=== PATIENT | male | born 1985 | race Caucasian/White ===

== ENCOUNTER 2021-01-27 15:44 | Inpatient (IN) | payer BC ==
[2021-01-27] MEDS ORDERED: Sodium Chloride 0.9% 10 ML Syringe FLUSH PRN ×2 (16:06→19:50)
[2021-01-27] MEDS ORDERED: Sodium Chloride 0.9% 2.5 ML Syringe FLUSH PRN ×2 (16:06→19:50)
[2021-01-27] MEDS ORDERED: Sodium Chloride 0.9% 1,000 ML IV ONE (16:06)
[2021-01-27] MEDS ORDERED: Piperacillin/Tazobactam 3.375 GM in Sodium Chloride 0.9% 50 ML IV ONE (16:13)
--- NOTE | 2021-01-27 16:15 | EDM.PDOC ---
ED HPI GENERAL MEDICAL PROBLEM - General Chief Complaint: Flank Pain Stated Complaint: PAIN RT SIDE BACK INTO FRONT Time Seen by Provider: 01/27/21 15:52 Source of Information: Reports: Patient History Limitations: Reports: No Limitations - History of Present Illness INITIAL COMMENTS - FREE TEXT/NARRATIVE: 35-year-old male past medical history depression presents for fever. Patient states that he has had flulike symptoms for around the past 6 days. Initially with a nonproductive cough, sore throat, congestion. Over the last 2 to 3 days he has noted abdominal pain worse on the right side and radiating to the right middle back. No associated dysuria, hematuria. No associated nausea or vomiting. His fevers are waxing and waning and has been taking a lot of Tylenol. He has been trying to stay hydrated. Right flank Pain Score (Numeric/FACES): 8 - Related Data Allergies Allergy/AdvReac Type Severity Reaction Status Date / Time No Known Allergies Allergy Verified 01/27/21 15:54 Home Meds: Home Meds lamoTRIgine [Lamictal] 100 mg PO DAILY 04/02/18 [History] Past Medical History - Past Health History Medical/Surgical History: Denies Medical/Surgical History HEENT History: Reports: None Cardiovascular History: Reports: None Respiratory History: Reports: None Gastrointestinal History: Reports: Other (See Below) Other Gastrointestinal History: occasional heartburn Genitourinary History: Reports: None Musculoskeletal History: Reports: None Neurological History: Reports: None Psychiatric History: Reports: Anxiety, Bipolar Endocrine/Metabolic History: Reports: None Hematologic History: Reports: None Immunologic History: Reports: None Oncologic (Cancer) History: Reports: None Dermatologic History: Reports: None - Infectious Disease History Infectious Disease History: Reports: Chicken Pox - Past Surgical History Head Surgeries/Procedures: Reports: None HEENT Surgical History: Reports: None Cardiovascular Surgical History: Reports: None Respiratory Surgical History: Reports: None GI Surgical History: Reports: None Male Surgical History: Reports: None Endocrine Surgical History: Reports: None Neurological Surgical History: Reports: None Musculoskeletal Surgical History: Reports: None Oncologic Surgical History: Reports: None Dermatological Surgical History: Reports: None Social & Family History - Family History Family Medical History: No Pertinent Family History - Tobacco Use Tobacco Use Status *Q: Former Tobacco User Used Tobacco, but Quit: Yes Month/Year Tobacco Last Used: 8 days - Caffeine Use Caffeine Use: Reports: None - Recreational Drug Use Recreational Drug Use: Yes Recreational Drug Type: Reports: Marijuana/Hashish ED ROS GENERAL - Review of Systems Review Of Systems: Comprehensive ROS is negative, except as noted in HPI. ED EXAM, GENERAL - Physical Exam Exam: See Below Exam Limited By: No Limitations General Appearance: Alert, WD/WN, No Apparent Distress Throat/Mouth: Normal Voice, No Airway Compromise Head: Atraumatic, Normocephalic Neck: Normal Inspection, Supple, Non-Tender Respiratory/Chest: No Respiratory Distress, Lungs Clear, Normal Breath Sounds, No Accessory Muscle Use Cardiovascular: Normal Peripheral Pulses, Tachycardia GI/Abdominal: Soft, Other (subjective TTP diffuse worse in right sided abdomen, no guarding or rebound, negative McBurneys and [place]phe[place] point) Back Exam: Normal Inspection Extremities: Normal Inspection, Normal Range of Motion, No Pedal Edema Neurological: Alert, Oriented, Normal Cognition Psychiatric: Normal Affect, Normal Mood Skin Exam: Warm, Dry, Intact, Normal Color #1 Interpretation EKG Date: 01/27/21 Time: 16:16 Rhythm: NSR Rate (Beats/Min): 118 [place]: Normal P-Wave: Present QRS: Normal ST-T: Normal QT: Normal RI/PQ Interval: 162 Comparison: NA - No Prior EKG EKG Interpretation Comments: tachycardia without ischemic changes Course - Vital Signs Last Recorded V/S: Last Vital Signs Temp 101.3 F H 01/27/21 17:53 Pulse 100 01/27/21 17:53 Resp 18 01/27/21 17:53 BP 122/74 01/27/21 17:53 Pulse Ox 95 01/27/21 17:53 - Orders/Labs/Meds Orders: Active Orders 24 hr Category Date Time Status Patient Status [ADT] Routine ADT 01/27/21 18:35 Active Cardiac Monitoring [RC] . DIRECTED Care 01/27/21 16:06 Active EKG Documentation Completion [RC] STAT Care 01/27/21 16:06 Active Pulse Oximetry [RC] ASDIRECTED Care 01/27/21 16:06 Active CORONAVIRUS COVID-19 HELENA [MOLEC] Stat Lab 01/27/21 18:36 Ordered COVID-19/FLU A+B [MOLEC] Stat Lab 01/27/21 16:09 Ordered CULTURE BLOOD [BC] Stat Lab 01/27/21 16:13 Received CULTURE BLOOD [BC] Stat Lab 01/27/21 16:45 Received PTT,PARTIAL THROMBOPLSTIN TIME [COAG] Q6H Lab 01/27/21 18:45 Ordered PTT,PARTIAL THROMBOPLSTIN TIME [COAG] Q6 Lab 01/28/21 00:45 Ordered PTT,PARTIAL THROMBOPLSTIN TIME [COAG] Q6 Lab 01/28/21 06:45 Ordered PTT,PARTIAL THROMBOPLSTIN TIME [COAG] Q6 Lab 01/28/21 12:45 Ordered PTT,PARTIAL THROMBOPLSTIN TIME [COAG] Q6 Lab 01/28/21 18:45 Ordered PTT,PARTIAL THROMBOPLSTIN TIME [COAG] Q6 Lab 01/29/21 00:45 Ordered PTT,PARTIAL THROMBOPLSTIN TIME [COAG] Q6 Lab 01/29/21 06:45 Ordered PTT,PARTIAL THROMBOPLSTIN TIME [COAG] Stat Lab 01/27/21 18:36 Ordered Azithromycin [Zithromax] 500 mg Med 01/27/21 18:51 Ordered Sodium Chloride 0.9% [Normal Saline (AdvBag)] 250 ml IV ONETIME Heparin Sodium/0.45% NaCl [Heparin 25,000 Units in 1/2 Med 01/27/21 18:45 Active NS 500 ML] 500 ml IV TITRATE Ketorolac [Toradol] Med 01/27/21 18:52 Stat 15 mg IVPUSH STAT STA Sodium Chloride 0.9% [Saline Flush] Med 01/27/21 16:06 Active 10 ml FLUSH ASDIRECTED PRN Sodium Chloride 0.9% [Saline Flush] Med 01/27/21 16:06 Active 2.5 ml FLUSH ASDIRECTED PRN Blood Culture x2 Reflex Set [OM.PC] Stat Oth 01/27/21 16:08 Ordered Saline Lock Insert [OM.PC] Stat Oth 01/27/21 16:06 Ordered Medication Orders Heparin Sodium/Sodium Chloride (Heparin 25,000 Units In 1/2 Ns 500 Ml) 500 mls @ 26.127 mls/hr IV TITRATE BETSY; Protocol Azithromycin 500 mg/ Sodium (Chloride) 250 mls @ 250 mls/hr IV ONETIME STA Stop: 01/27/21 19:50 Sodium Chloride (Sodium Chloride 0.9% 10 Ml Syringe) 10 ml FLUSH ASDIRECTED PRN PRN Reason: Keep Vein Open Last Admin: 01/27/21 16:44 Dose: 10 ml Documented by: [id number] Sodium Chloride (Sodium Chloride 0.9% 2.5 Ml Syringe) 2.5 ml FLUSH ASDIRECTED PRN PRN Reason: Keep Vein Open Last Admin: 01/27/21 16:44 Dose: 2.5 ml Documented by: [id number] Labs: Laboratory Tests 01/27/21 01/27/21 01/27/21 Range/Units 16:45 16:45 16:45 WBC 14.75 H (4.0-11.0) K/uL RBC 4.41 L (4.50-5.90) M/uL Hgb 12.8 L (13.0-17.0) g/dL Hct 38.0 (38.0-50.0) % MCV 86.2 (80.0-98.0) fL MCH 29.0 (27.0-32.0) pg MCHC 33.7 (31.0-37.0) g/dL RDW Std Deviation 43.3 (28.0-62.0) fl RDW Coeff of Willy 14 (11.0-15.0) % Plt Count 316 (150-400) K/uL MPV 10.10 (7.40-12.00) fL Neut % (Auto) 87.2 H (48.0-80.0) % Lymph % (Auto) 6.4 L (16.0-40.0) % [place] % (Auto) 6.2 (0.0-15.0) % Eos % (Auto) 0.1 (0.0-7.0) % Baso % (Auto) 0.1 (0.0-1.5) % Neut # (Auto) 12.8 H (1.4-5.7) K/uL Lymph # (Auto) 1.0 (0.6-2.4) K/uL [place] # (Auto) 0.9 H (0.0-0.8) K/uL Eos # (Auto) 0.0 (0.0-0.7) K/uL Baso # (Auto) 0.0 (0.0-0.1) K/uL Nucleated RBC % 0.0 /100WBC Nucleated RBCs # 0 K/uL INR APTT (18.6-31.3) SEC Sodium 129 L (136-148) mmol/L Potassium 3.9 (3.5-5.1) mmol/L Chloride 94 L (98-107) mmol/L Carbon Dioxide 25.7 (21.0-32.0) mmol/L BUN 12 (7.0-18.0) mg/dL Creatinine 1.1 (0.8-1.3) mg/dL Est Cr Clr Drug Dosing 97.13 mL/min Estimated GFR (MDRD) > 60.0 ml/min Glucose 129 H (74-106) mg/dL Lactic Acid 1.6 (0.4-2.0) mmol/L Calcium 8.2 L (8.5-10.1) mg/dL Magnesium 2.2 (1.8-2.4) mg/dL Total Bilirubin 0.9 (0.2-1.0) mg/dL AST 139 H (15-37) IU/L ALT 215 H (14-63) IU/L Alkaline Phosphatase 293 H (46-116) U/L Troponin I < 0.050 (0.000-0.056) ng/mL C-Reactive Protein 15.90 H (0.00-0.90) mg/dL Total Protein 7.2 (6.4-8.2) g/dL Albumin 2.5 L (3.4-5.0) g/dL Globulin 4.7 H (2.6-4.0) g/dL Albumin/Globulin Ratio 0.5 L (0.9-1.6) Lipase 167 (73-393) U/L Urine Color Urine Appearance Urine pH (5.0-8.0) Ur Specific [place] (1.001-1.035) Urine Protein (NEGATIVE) mg/dL Urine Glucose (UA) (NEGATIVE) mg/dL Urine Ketones (NEGATIVE) mg/dL Urine Occult Blood (NEGATIVE) Urine Nitrite (NEGATIVE) Urine Bilirubin (NEGATIVE) Urine Urobilinogen (<2.0) EU/dL Ur Leukocyte Esterase (NEGATIVE) Urine RBC (0-2/HPF) Urine WBC (0-5/HPF) Ur Epithelial Cells (NONE-FEW) Amorphous Sediment (NEGATIVE) Urine Bacteria (NEGATIVE) Urine Mucus (NONE-MOD) 01/27/21 01/27/21 Range/Units 16:45 17:26 WBC (4.0-11.0) K/uL RBC (4.50-5.90) M/uL Hgb (13.0-17.0) g/dL Hct (38.0-50.0) % MCV (80.0-98.0) fL MCH (27.0-32.0) pg MCHC (31.0-37.0) g/dL RDW Std Deviation (28.0-62.0) fl RDW Coeff of Willy (11.0-15.0) % Plt Count (150-400) K/uL MPV (7.40-12.00) fL Neut % (Auto) (48.0-80.0) % Lymph % (Auto) (16.0-40.0) % [place] % (Auto) (0.0-15.0) % Eos % (Auto) (0.0-7.0) % Baso % (Auto) (0.0-1.5) % Neut # (Auto) (1.4-5.7) K/uL Lymph # (Auto) (0.6-2.4) K/uL [place] # (Auto) (0.0-0.8) K/uL Eos # (Auto) (0.0-0.7) K/uL Baso # (Auto) (0.0-0.1) K/uL Nucleated RBC % /100WBC Nucleated RBCs # K/uL INR 1.09 APTT 27.3 (18.6-31.3) SEC Sodium (136-148) mmol/L Potassium (3.5-5.1) mmol/L Chloride (98-107) mmol/L Carbon Dioxide (21.0-32.0) mmol/L BUN (7.0-18.0) mg/dL Creatinine (0.8-1.3) mg/dL Est Cr Clr Drug Dosing mL/min Estimated GFR (MDRD) ml/min Glucose (74-106) mg/dL Lactic Acid (0.4-2.0) mmol/L Calcium (8.5-10.1) mg/dL Magnesium (1.8-2.4) mg/dL Total Bilirubin (0.2-1.0) mg/dL AST (15-37) IU/L ALT (14-63) IU/L Alkaline Phosphatase (46-116) U/L Troponin I (0.000-0.056) ng/mL C-Reactive Protein (0.00-0.90) mg/dL Total Protein (6.4-8.2) g/dL Albumin (3.4-5.0) g/dL Globulin (2.6-4.0) g/dL Albumin/Globulin Ratio (0.9-1.6) Lipase (73-393) U/L Urine Color YELLOW Urine Appearance CLEAR Urine pH 7.5 (5.0-8.0) Ur Specific [place] 1.015 (1.001-1.035) Urine Protein TRACE H (NEGATIVE) mg/dL Urine Glucose (UA) NEGATIVE (NEGATIVE) mg/dL Urine Ketones NEGATIVE (NEGATIVE) mg/dL Urine Occult Blood TRACE-INTACT H (NEGATIVE) Urine Nitrite NEGATIVE (NEGATIVE) Urine Bilirubin NEGATIVE (NEGATIVE) Urine Urobilinogen 4.0 H (<2.0) EU/dL Ur Leukocyte Esterase NEGATIVE (NEGATIVE) Urine RBC 2-3 (0-2/HPF) Urine WBC 0-1 (0-5/HPF) Ur Epithelial Cells NOT SEEN (NONE-FEW) Amorphous Sediment RARE (NEGATIVE) Urine Bacteria RARE (NEGATIVE) Urine Mucus RARE (NONE-MOD) Meds: Medications Generic Name Dose Route Start Last Admin Trade Name Freq PRN Reason Stop Dose Admin Heparin Sodium/Sodium Chloride 500 mls @ 26.127 mls/hr 01/27/21 18:45 Heparin 25,000 Units In 1/2 Ns 500 Ml IV TITRATE BETSY Protocol 18 UNITS/KG/HR Azithromycin 500 mg/ Sodium 250 mls @ 250 mls/hr 01/27/21 18:51 Chloride IV 01/27/21 19:50 ONETIME STA Sodium Chloride 10 ml 01/27/21 16:06 01/27/21 16:44 Sodium Chloride 0.9% 10 Ml Syringe FLUSH 10 ml ASDIRECTED PRN Administration Keep Vein Open Sodium Chloride 2.5 ml 01/27/21 16:06 01/27/21 16:44 Sodium Chloride 0.9% 2.5 Ml Syringe FLUSH 2.5 ml ASDIRECTED PRN Administration Keep Vein Open Discontinued Medications Generic Name Dose Route Start Last Admin Trade Name Freq PRN Reason Stop Dose Admin Acetaminophen 1,000 mg 01/27/21 16:33 01/27/21 16:42 Acetaminophen 500 Mg Tab PO 01/27/21 16:34 1,000 mg ONETIME ONE Administration Sodium Chloride 1,000 mls @ 999 mls/hr 01/27/21 16:06 01/27/21 16:43 Normal Saline IV 01/27/21 17:06 999 mls/hr .Bolus ONE Administration Piperacillin Sod/Tazobactam 50 mls @ 100 mls/hr 01/27/21 16:13 01/27/21 17:34 Sod 3.375 gm/ Sodium Chloride IV 01/27/21 16:42 Infused ONETIME ONE Infusion Vancomycin HCl 1,500 mg/ 100 mls @ 100 mls/hr 01/27/21 16:13 01/27/21 17:33 Sodium Chloride IV 01/27/21 17:12 Not Given ONETIME ONE Vancomycin HCl 1.5 gm/ Premix 300 mls @ 300 mls/hr 01/27/21 17:13 01/27/21 17:33 IV 01/27/21 18:12 300 mls/hr ONETIME ONE Administration Azithromycin 500 mg/ Sodium 250 mls @ 250 mls/hr 01/27/21 18:45 Chloride IV ONETIME BETSY Iopamidol 100 ml 01/27/21 17:49 01/27/21 17:50 Iopamidol 755 Mg/Ml 500 Ml Multipack Bottle IVPUSH 01/27/21 17:50 100 ml ONETIME STA Administration - Re-Assessments/Exams Free Text/Narrative Re-Assessment/Exam: 01/27/21 16:13 Patient's presents with SIRS positive criteria. Will work-up for sepsis. Symptoms are somewhat nonspecific and do not single out any [address] abdomen pelvis. 01/27/21 18:53 CT abdomen pelvis shows the lower part of the right lung has a possible pulmonar y infarct. Will start heparin now. Spoke with Dr. Chaparro who recommends admitting patient to the hospital and they will get a CTA in the morning. We also did a Covid screening before patient is admitted. Departure - Departure Time of Disposition: 18:53 Disposition: Admitted As Inpatient 67 Condition: Fair Clinical Impression: Pulmonary infarct, Pulmonary infection - Discharge Information Referrals: Amando Maldonado MD [Primary Care Provider] - Forms: ED Department Discharge Critical Care Note - Critical Care Note Total Time (mins): 35 Sepsis Event Note (ED) - Evaluation Sepsis Screening Result: Possible Sepsis Risk - Focused Exam Vital Signs: Vital Signs Temp Temp Temp Pulse Resp BP Pulse Ox 01/27/21 17:53 101.3 F H 100 18 122/74 95 01/27/21 16:46 126 H 18 141/68 H 96 01/27/21 16:42 101 F H 01/27/21 15:55 100.7 F H 125 H 20 123/79 95 - My Orders Last 24 Hours: My Active Orders 01/27/21 16:06 Cardiac Monitoring [RC] . DIRECTED EKG Documentation Completion [RC] STAT Pulse Oximetry [RC] ASDIRECTED Sodium Chloride 0.9% [Saline Flush] 10 ml FLUSH ASDIRECTED PRN Sodium Chloride 0.9% [Saline Flush] 2.5 ml FLUSH ASDIRECTED PRN Saline Lock Insert [OM.PC] Stat 01/27/21 16:08 Blood Culture x2 Reflex Set [OM.PC] Stat 01/27/21 16:09 COVID-19/FLU A+B [MOLEC] Stat 01/27/21 16:13 CULTURE BLOOD [BC] Stat 01/27/21 16:45 CULTURE BLOOD [BC] Stat 01/27/21 18:35 Patient Status [ADT] Routine 01/27/21 18:36 CORONAVIRUS COVID-19 HELENA [MOLEC] Stat PTT,PARTIAL THROMBOPLSTIN TIME [COAG] Stat 01/27/21 18:45 PTT,PARTIAL THROMBOPLSTIN TIME [COAG] Q6H Heparin Sodium/0.45% NaCl [Heparin 25,000 Units in 1/2 NS 500 ML] 500 ml IV TITRATE 01/27/21 18:51 Azithromycin [Zithromax] 500 mg Sodium Chloride 0.9% [Normal Saline (AdvBag)] 250 ml IV ONETIME 01/27/21 18:52 Ketorolac [Toradol] 15 mg IVPUSH STAT STA 01/28/21 00:45 PTT,PARTIAL THROMBOPLSTIN TIME [COAG] Q6H 01/28/21 06:45 PTT,PARTIAL THROMBOPLSTIN TIME [COAG] Q6H 01/28/21 12:45 PTT,PARTIAL THROMBOPLSTIN TIME [COAG] Q6H 01/28/21 18:45 PTT,PARTIAL THROMBOPLSTIN TIME [COAG] Q6H 01/29/21 00:45 PTT,PARTIAL THROMBOPLSTIN TIME [COAG] Q6H 01/29/21 06:45 PTT,PARTIAL THROMBOPLSTIN TIME [COAG] Q6H - Assessment/Plan Last 24 Hours: My Active Orders 01/27/21 16:06 Cardiac Monitoring [RC] . DIRECTED EKG Documentation Completion [RC] STAT Pulse Oximetry [RC] ASDIRECTED Sodium Chloride 0.9% [Saline Flush] 10 ml FLUSH ASDIRECTED PRN Sodium Chloride 0.9% [Saline Flush] 2.5 ml FLUSH ASDIRECTED PRN Saline Lock Insert [OM.PC] Stat 01/27/21 16:08 Blood Culture x2 Reflex Set [OM.PC] Stat 01/27/21 16:09 COVID-19/FLU A+B [MOLEC] Stat 01/27/21 16:13 CULTURE BLOOD [BC] Stat 01/27/21 16:45 CULTURE BLOOD [BC] Stat 01/27/21 18:35 Patient Status [ADT] Routine 01/27/21 18:36 CORONAVIRUS COVID-19 HELENA [MOLEC] Stat PTT,PARTIAL THROMBOPLSTIN TIME [COAG] Stat 01/27/21 18:45 PTT,PARTIAL THROMBOPLSTIN TIME [COAG] Q6H Heparin Sodium/0.45% NaCl [Heparin 25,000 Units in 1/2 NS 500 ML] 500 ml IV TITRATE 01/27/21 18:51 Azithromycin [Zithromax] 500 mg Sodium Chloride 0.9% [Normal Saline (AdvBag)] 250 ml IV ONETIME 01/27/21 18:52 Ketorolac [Toradol] 15 mg IVPUSH STAT STA 01/28/21 00:45 PTT,PARTIAL THROMBOPLSTIN TIME [COAG] Q6H 01/28/21 06:45 PTT,PARTIAL THROMBOPLSTIN TIME [COAG] Q6H 01/28/21 12:45 PTT,PARTIAL THROMBOPLSTIN TIME [COAG] Q6H 01/28/21 18:45 PTT,PARTIAL THROMBOPLSTIN TIME [COAG] Q6H 01/29/21 00:45 PTT,PARTIAL THROMBOPLSTIN TIME [COAG] Q6H 01/29/21 06:45 PTT,PARTIAL THROMBOPLSTIN TIME [COAG] Q6H
[2021-01-27] MEDS ORDERED: Acetaminophen 500 MG Tab PO ONE (16:33)
--- NOTE | 2021-01-27 16:54 | CR ---
INDICATION: Sepsis. TECHNIQUE: Single view AP chest. FINDINGS: Heart size is within normal limits. No focal dense infiltrate or consolidation in either lung. Chest otherwise negative without acute disease. Dictated by Ian Hackett MD @ 01/27/2021 4:52:[address] Ian Hackett @ Jan 27 2021 4:52PM
[2021-01-27] MEDS ORDERED: VANCOmycin 1.5 GM/300 ML 1.5 GM in Premix Bag 1 BAG IV ONE (17:13)
[2021-01-27 17:27] LABS: BLOOD UREA NITROGEN,BUN 12 mg/dL (7.0-18.0); CARBON DIOXIDE,CO2 25.7 mmol/L (21.0-32.0); CHLORIDE,CL 94 mmol/L (98-107); GLUCOSE RANDOM 129 mg/dL (74-106); LIPASE 167 U/L (73-393); POTASSIUM,K 3.9 mmol/L (3.5-5.1); SODIUM,NA 129 mmol/L (136-148)
[2021-01-27] MEDS ORDERED: Iopamidol 755 MG/ML 500 ML Multipack Bottle IVPUSH STA (17:49)
--- NOTE | 2021-01-27 18:24 | CT ---
INDICATION: Sepsis, abdominal pain. TECHNIQUE: CT abdomen and pelvis with intravenous contrast 100 mL of Isovue-370. Coronal and sagittal reformats. COMPARISON: None available. FINDINGS: Imaged lower chest demonstrates trace bilateral pleural fluid, right greater than left. Mild bibasilar compressive atelectasis. Lateral right lower lobe demonstrates a triangular subpleural wedge-shaped consolidative opacity with a rim of ground-glass opacification (series 201, image 3), measuring up to 2.4 cm in total. - Normal liver contour. No suspicious hepatic lesion. Portal and hepatic veins patent. No biliary dilatation. Gallbladder, pancreas, and adrenals appear normal. Spleen is mildly enlarged, measuring up to 16 cm craniocaudal. - Renal cortical enhancement appears symmetric but mildly heterogeneous diffusely. No hydronephrosis bilaterally. Mild bladder wall thickening versus underdistention. Prostate unremarkable. - The bowel appears normal in caliber and enhancement diffusely. Appendix appears normal. No free air, free fluid, focal collection, or lymphadenopathy. - Normal caliber abdominal aorta. Major branch vessels patent. No aggressive osseous lesion. IMPRESSION: 1. No acute kidneys demonstrate mildly heterogeneous but symmetric cortical enhancement, possibly artifactual. Correlate for clinical evidence of urinary infection. 2. Nonspecific mild splenomegaly. 3. Trace bilateral pleural effusions with bibasilar atelectasis. 4. Right lower lobe peripheral wedge-shaped consolidative opacity with ground-glass halo is indeterminate and possibly infectious, but raising the possibility of a pulmonary infarct. Consider further evaluation with CT pulmonary angiogram. Dictated by Gil Arredondo MD @ 01/27/2021 6:23:31 PM Please note that all CT scans at this facility use dose modulation, iterative reconstruction, and/or weight-based dosing when appropriate to reduce radiation dose to as low as reasonably achievable. Dictated by: Gil Arredondo MD @ 01/27/2021 18:23:34 (Electronically Signed)
[2021-01-27] MEDS ORDERED: Azithromycin 500 MG in Sodium Chloride 0.9% 250 ML IV SCH (18:45)
[2021-01-27] MEDS ORDERED: Azithromycin 500 MG in Sodium Chloride 0.9% 250 ML IV STA (18:51)
[2021-01-27] MEDS ORDERED: Ketorolac 15 MG/ML SDV IVPUSH STA (18:52)
[2021-01-27] MEDS ORDERED: Heparin Sodium/0.45% NaCl 500 ML ONE (19:00)
[2021-01-27] MEDS ORDERED: Sodium Chloride 0.9% 1,000 ML IV SCH ×2 (19:45→20:00)
[2021-01-27] MEDS ORDERED: Ondansetron 4 MG Tab.DIS PO PRN (19:50)
[2021-01-27] MEDS ORDERED: Sodium Chloride 0.9% 10 ML SDV IV PRN (19:50)
[2021-01-27] MEDS ORDERED: Morphine 10 MG/ML Syringe IVPUSH PRN (19:50)
--- NOTE | 2021-01-27 20:14 | PCM.PN ---
- General Info Date of Service: 01/27/21 Admission Dx/Problem (Free Text): Flank pain/chest pain Functional Status: Reports: Pain Controlled, Tolerating Diet - Review of Systems General: Reports: Fever, Fatigue, Appetite (Decreased) HEENT: Reports: No Symptoms Pulmonary: Reports: Pleuritic Chest Pain Cardiovascular: Reports: Chest Pain, Palpitations Gastrointestinal: Reports: Abdominal Pain Genitourinary: Reports: No Symptoms Musculoskeletal: Reports: No Symptoms Skin: Reports: No Symptoms Neurological: Reports: No Symptoms Psychiatric: Reports: No Symptoms - Patient Data Vitals - Most Recent: Last Vital Signs Temp 100.6 F 01/27/21 18:58 Pulse 96 01/27/21 18:53 Resp 18 01/27/21 18:53 BP 108/56 L 01/27/21 18:53 Pulse Ox 96 01/27/21 18:53 Weight - Most Recent: 160 lb Lab Results Last 24 Hours: Laboratory Results - last 24 hr 01/27/21 01/27/21 01/27/21 Range/Units 16:45 16:45 16:45 WBC 14.75 H (4.0-11.0) K/uL RBC 4.41 L (4.50-5.90) M/uL Hgb 12.8 L (13.0-17.0) g/dL Hct 38.0 (38.0-50.0) % MCV 86.2 (80.0-98.0) fL MCH 29.0 (27.0-32.0) pg MCHC 33.7 (31.0-37.0) g/dL RDW Std Deviation 43.3 (28.0-62.0) fl RDW Coeff of Willy 14 (11.0-15.0) % Plt Count 316 (150-400) K/uL MPV 10.10 (7.40-12.00) fL Neut % (Auto) 87.2 H (48.0-80.0) % Lymph % (Auto) 6.4 L (16.0-40.0) % Stearns % (Auto) 6.2 (0.0-15.0) % Eos % (Auto) 0.1 (0.0-7.0) % Baso % (Auto) 0.1 (0.0-1.5) % Neut # (Auto) 12.8 H (1.4-5.7) K/uL Lymph # (Auto) 1.0 (0.6-2.4) K/uL Stearns # (Auto) 0.9 H (0.0-0.8) K/uL Eos # (Auto) 0.0 (0.0-0.7) K/uL Baso # (Auto) 0.0 (0.0-0.1) K/uL Nucleated RBC % 0.0 /100WBC Nucleated RBCs # 0 K/uL INR APTT (18.6-31.3) SEC Sodium 129 L (136-148) mmol/L Potassium 3.9 (3.5-5.1) mmol/L Chloride 94 L (98-107) mmol/L Carbon Dioxide 25.7 (21.0-32.0) mmol/L BUN 12 (7.0-18.0) mg/dL Creatinine 1.1 (0.8-1.3) mg/dL Est Cr Clr Drug Dosing 97.13 mL/min Estimated GFR (MDRD) > 60.0 ml/min Glucose 129 H (74-106) mg/dL Lactic Acid 1.6 (0.4-2.0) mmol/L Calcium 8.2 L (8.5-10.1) mg/dL Magnesium 2.2 (1.8-2.4) mg/dL Total Bilirubin 0.9 (0.2-1.0) mg/dL AST 139 H (15-37) IU/L ALT 215 H (14-63) IU/L Alkaline Phosphatase 293 H (46-116) U/L Troponin I < 0.050 (0.000-0.056) ng/mL C-Reactive Protein 15.90 H (0.00-0.90) mg/dL Total Protein 7.2 (6.4-8.2) g/dL Albumin 2.5 L (3.4-5.0) g/dL Globulin 4.7 H (2.6-4.0) g/dL Albumin/Globulin Ratio 0.5 L (0.9-1.6) Lipase 167 (73-393) U/L Urine Color Urine Appearance Urine pH (5.0-8.0) Ur Specific [place] (1.001-1.035) Urine Protein (NEGATIVE) mg/dL Urine Glucose (UA) (NEGATIVE) mg/dL Urine Ketones (NEGATIVE) mg/dL Urine Occult Blood (NEGATIVE) Urine Nitrite (NEGATIVE) Urine Bilirubin (NEGATIVE) Urine Urobilinogen (<2.0) EU/dL Ur Leukocyte Esterase (NEGATIVE) Urine RBC (0-2/HPF) Urine WBC (0-5/HPF) Ur Epithelial Cells (NONE-FEW) Amorphous Sediment (NEGATIVE) Urine Bacteria (NEGATIVE) Urine Mucus (NONE-MOD) 01/27/21 01/27/21 Range/Units 16:45 17:26 WBC (4.0-11.0) K/uL RBC (4.50-5.90) M/uL Hgb (13.0-17.0) g/dL Hct (38.0-50.0) % MCV (80.0-98.0) fL MCH (27.0-32.0) pg MCHC (31.0-37.0) g/dL RDW Std Deviation (28.0-62.0) fl RDW Coeff of Willy (11.0-15.0) % Plt Count (150-400) K/uL MPV (7.40-12.00) fL Neut % (Auto) (48.0-80.0) % Lymph % (Auto) (16.0-40.0) % Stearns % (Auto) (0.0-15.0) % Eos % (Auto) (0.0-7.0) % Baso % (Auto) (0.0-1.5) % Neut # (Auto) (1.4-5.7) K/uL Lymph # (Auto) (0.6-2.4) K/uL Stearns # (Auto) (0.0-0.8) K/uL Eos # (Auto) (0.0-0.7) K/uL Baso # (Auto) (0.0-0.1) K/uL Nucleated RBC % /100WBC Nucleated RBCs # K/uL INR 1.09 APTT 27.3 (18.6-31.3) SEC Sodium (136-148) mmol/L Potassium (3.5-5.1) mmol/L Chloride (98-107) mmol/L Carbon Dioxide (21.0-32.0) mmol/L BUN (7.0-18.0) mg/dL Creatinine (0.8-1.3) mg/dL Est Cr Clr Drug Dosing mL/min Estimated GFR (MDRD) ml/min Glucose (74-106) mg/dL Lactic Acid (0.4-2.0) mmol/L Calcium (8.5-10.1) mg/dL Magnesium (1.8-2.4) mg/dL Total Bilirubin (0.2-1.0) mg/dL AST (15-37) IU/L ALT (14-63) IU/L Alkaline Phosphatase (46-116) U/L Troponin I (0.000-0.056) ng/mL C-Reactive Protein (0.00-0.90) mg/dL Total Protein (6.4-8.2) g/dL Albumin (3.4-5.0) g/dL Globulin (2.6-4.0) g/dL Albumin/Globulin Ratio (0.9-1.6) Lipase (73-393) U/L Urine Color YELLOW Urine Appearance CLEAR Urine pH 7.5 (5.0-8.0) Ur Specific [place] 1.015 (1.001-1.035) Urine Protein TRACE H (NEGATIVE) mg/dL Urine Glucose (UA) NEGATIVE (NEGATIVE) mg/dL Urine Ketones NEGATIVE (NEGATIVE) mg/dL Urine Occult Blood TRACE-INTACT H (NEGATIVE) Urine Nitrite NEGATIVE (NEGATIVE) Urine Bilirubin NEGATIVE (NEGATIVE) Urine Urobilinogen 4.0 H (<2.0) EU/dL Ur Leukocyte Esterase NEGATIVE (NEGATIVE) Urine RBC 2-3 (0-2/HPF) Urine WBC 0-1 (0-5/HPF) Ur Epithelial Cells NOT SEEN (NONE-FEW) Amorphous Sediment RARE (NEGATIVE) Urine Bacteria RARE (NEGATIVE) Urine Mucus RARE (NONE-MOD) Med Orders - Current: Current Medications Acetaminophen (Acetaminophen 325 Mg Tab) 650 mg PO Q4H PRN PRN Reason: Pain (Mild 1-3)/fever Heparin Sodium/Sodium Chloride (Heparin 25,000 Units In 1/2 Ns 500 Ml) 500 mls @ 26.127 mls/hr IV TITRATE BETSY; Protocol Sodium Chloride (Normal Saline) 1,000 mls @ 999 mls/hr IV ASDIRECTED BETSY Lamotrigine (Lamotrigine 100 Mg Tab) 100 mg PO DAILY BETSY Morphine Sulfate (Morphine 10 Mg/Ml Syringe) 2 mg IVPUSH Q2H PRN PRN Reason: Pain (severe 7-10) Stop: 01/28/21 19:56 Ondansetron HCl (Ondansetron 4 Mg Tab.Dis) 4 mg PO Q4H PRN PRN Reason: nausea, able to take PO Sodium Chloride (Sodium Chloride 0.9% 10 Ml Syringe) 10 ml FLUSH ASDIRECTED PRN PRN Reason: Keep Vein Open Last Admin: 01/27/21 16:44 Dose: 10 ml Documented by: Sodium Chloride (Sodium Chloride 0.9% 2.5 Ml Syringe) 2.5 ml FLUSH ASDIRECTED PRN PRN Reason: Keep Vein Open Last Admin: 01/27/21 16:44 Dose: 2.5 ml Documented by: Sodium Chloride (Sodium Chloride 0.9% 10 Ml Syringe) 10 ml FLUSH ASDIRECTED PRN PRN Reason: Keep Vein Open Sodium Chloride (Sodium Chloride 0.9% 2.5 Ml Syringe) 2.5 ml FLUSH ASDIRECTED PRN PRN Reason: Keep Vein Open Sodium Chloride (Sodium Chloride 0.9% 10 Ml Sdv) 10 ml IV ASDIRECTED PRN PRN Reason: IV Use Discontinued Medications Acetaminophen (Acetaminophen 500 Mg Tab) 1,000 mg PO ONETIME ONE Stop: 01/27/21 16:34 Last Admin: 01/27/21 16:42 Dose: 1,000 mg Documented by: Sodium Chloride (Normal Saline) 1,000 mls @ 999 mls/hr IV .Bolus ONE Stop: 01/27/21 17:06 Last Admin: 01/27/21 16:43 Dose: 999 mls/hr Documented by: Piperacillin Sod/Tazobactam (Sod 3.375 gm/ Sodium Chloride) 50 mls @ 100 mls/hr IV ONETIME ONE Stop: 01/27/21 16:42 Last Infusion: 01/27/21 17:34 Dose: Infused Documented by: Vancomycin HCl 1,500 mg/ (Sodium Chloride) 100 mls @ 100 mls/hr IV ONETIME ONE Stop: 01/27/21 17:12 Last Admin: 01/27/21 17:33 Dose: Not Given Documented by: Vancomycin HCl 1.5 gm/ Premix 300 mls @ 300 mls/hr IV ONETIME ONE Stop: 01/27/21 18:12 Last Admin: 01/27/21 17:33 Dose: 300 mls/hr Documented by: Azithromycin 500 mg/ Sodium (Chloride) 250 mls @ 250 mls/hr IV ONETIME BETSY Azithromycin 500 mg/ Sodium (Chloride) 250 mls @ 250 mls/hr IV ONETIME STA Stop: 01/27/21 19:50 Last Admin: 01/27/21 19:36 Dose: 250 mls/hr Documented by: Heparin Sodium/Sodium Chloride (Heparin 25,000 Units In 1/2 Ns 500 Ml) Confirm Administered Dose 500 mls @ as directed .ROUTE .STK-MED ONE Stop: 01/27/21 19:01 Sodium Chloride (Normal Saline) 1,000 mls @ 125 mls/hr IV ASDIRECTED BETSY Iopamidol (Iopamidol 755 Mg/Ml 500 Ml Multipack Bottle) 100 ml IVPUSH ONETIME STA Stop: 01/27/21 17:50 Last Admin: 01/27/21 17:50 Dose: 100 ml Documented by: Ketorolac Tromethamine (Ketorolac 15 Mg/Ml Sdv) 15 mg IVPUSH STAT STA Stop: 01/27/21 18:53 Last Admin: 01/27/21 19:35 Dose: 15 mg Documented by: - Exam Quality Assessment: DVT Prophylaxis General: Alert, Oriented HEENT: Pupils Equal, Pupils Reactive, EOMI Neck: Supple, Trachea Midline Lungs: Clear to Auscultation, Normal Respiratory Effort Cardiovascular: Regular Rate, Tachycardia GI/Abdominal Exam: Normal Bowel Sounds, No Distention, Tender Back Exam: Normal Inspection. No: CVA Tenderness (L), CVA Tenderness (R) Extremities: Normal Inspection, Normal Range of Motion, Non-Tender, No Pedal Edema, Normal Capillary Refill Peripheral Pulses: 2+: Carotid (L), Carotid (R), Dorsalis Pedis (L), Dorsalis Pedis (R) Skin: Warm, Dry, Intact Neurological: No New Focal Deficit Psy/Mental Status: Alert, Normal Affect, Normal Mood - Patient Data Lab Results Last 24 hrs: Laboratory Results - last 24 hr 01/27/21 01/27/21 01/27/21 Range/Units 16:45 16:45 16:45 WBC 14.75 H (4.0-11.0) K/uL RBC 4.41 L (4.50-5.90) M/uL Hgb 12.8 L (13.0-17.0) g/dL Hct 38.0 (38.0-50.0) % MCV 86.2 (80.0-98.0) fL MCH 29.0 (27.0-32.0) pg MCHC 33.7 (31.0-37.0) g/dL RDW Std Deviation 43.3 (28.0-62.0) fl RDW Coeff of Willy 14 (11.0-15.0) % Plt Count 316 (150-400) K/uL MPV 10.10 (7.40-12.00) fL Neut % (Auto) 87.2 H (48.0-80.0) % Lymph % (Auto) 6.4 L (16.0-40.0) % Stearns % (Auto) 6.2 (0.0-15.0) % Eos % (Auto) 0.1 (0.0-7.0) % Baso % (Auto) 0.1 (0.0-1.5) % Neut # (Auto) 12.8 H (1.4-5.7) K/uL Lymph # (Auto) 1.0 (0.6-2.4) K/uL Stearns # (Auto) 0.9 H (0.0-0.8) K/uL Eos # (Auto) 0.0 (0.0-0.7) K/uL Baso # (Auto) 0.0 (0.0-0.1) K/uL Nucleated RBC % 0.0 /100WBC Nucleated RBCs # 0 K/uL INR APTT (18.6-31.3) SEC Sodium 129 L (136-148) mmol/L Potassium 3.9 (3.5-5.1) mmol/L Chloride 94 L (98-107) mmol/L Carbon Dioxide 25.7 (21.0-32.0) mmol/L BUN 12 (7.0-18.0) mg/dL Creatinine 1.1 (0.8-1.3) mg/dL Est Cr Clr Drug Dosing 97.13 mL/min Estimated GFR (MDRD) > 60.0 ml/min Glucose 129 H (74-106) mg/dL Lactic Acid 1.6 (0.4-2.0) mmol/L Calcium 8.2 L (8.5-10.1) mg/dL Magnesium 2.2 (1.8-2.4) mg/dL Total Bilirubin 0.9 (0.2-1.0) mg/dL AST 139 H (15-37) IU/L ALT 215 H (14-63) IU/L Alkaline Phosphatase 293 H (46-116) U/L Troponin I < 0.050 (0.000-0.056) ng/mL C-Reactive Protein 15.90 H (0.00-0.90) mg/dL Total Protein 7.2 (6.4-8.2) g/dL Albumin 2.5 L (3.4-5.0) g/dL Globulin 4.7 H (2.6-4.0) g/dL Albumin/Globulin Ratio 0.5 L (0.9-1.6) Lipase 167 (73-393) U/L Urine Color Urine Appearance Urine pH (5.0-8.0) Ur Specific [place] (1.001-1.035) Urine Protein (NEGATIVE) mg/dL Urine Glucose (UA) (NEGATIVE) mg/dL Urine Ketones (NEGATIVE) mg/dL Urine Occult Blood (NEGATIVE) Urine Nitrite (NEGATIVE) Urine Bilirubin (NEGATIVE) Urine Urobilinogen (<2.0) EU/dL Ur Leukocyte Esterase (NEGATIVE) Urine RBC (0-2/HPF) Urine WBC (0-5/HPF) Ur Epithelial Cells (NONE-FEW) Amorphous Sediment (NEGATIVE) Urine Bacteria (NEGATIVE) Urine Mucus (NONE-MOD) 01/27/21 01/27/21 Range/Units 16:45 17:26 WBC (4.0-11.0) K/uL RBC (4.50-5.90) M/uL Hgb (13.0-17.0) g/dL Hct (38.0-50.0) % MCV (80.0-98.0) fL MCH (27.0-32.0) pg MCHC (31.0-37.0) g/dL RDW Std Deviation (28.0-62.0) fl RDW Coeff of Willy (11.0-15.0) % Plt Count (150-400) K/uL MPV (7.40-12.00) fL Neut % (Auto) (48.0-80.0) % Lymph % (Auto) (16.0-40.0) % Stearns % (Auto) (0.0-15.0) % Eos % (Auto) (0.0-7.0) % Baso % (Auto) (0.0-1.5) % Neut # (Auto) (1.4-5.7) K/uL Lymph # (Auto) (0.6-2.4) K/uL Stearns # (Auto) (0.0-0.8) K/uL Eos # (Auto) (0.0-0.7) K/uL Baso # (Auto) (0.0-0.1) K/uL Nucleated RBC % /100WBC Nucleated RBCs # K/uL INR 1.09 APTT 27.3 (18.6-31.3) SEC Sodium (136-148) mmol/L Potassium (3.5-5.1) mmol/L Chloride (98-107) mmol/L Carbon Dioxide (21.0-32.0) mmol/L BUN (7.0-18.0) mg/dL Creatinine (0.8-1.3) mg/dL Est Cr Clr Drug Dosing mL/min Estimated GFR (MDRD) ml/min Glucose (74-106) mg/dL Lactic Acid (0.4-2.0) mmol/L Calcium (8.5-10.1) mg/dL Magnesium (1.8-2.4) mg/dL Total Bilirubin (0.2-1.0) mg/dL AST (15-37) IU/L ALT (14-63) IU/L Alkaline Phosphatase (46-116) U/L Troponin I (0.000-0.056) ng/mL C-Reactive Protein (0.00-0.90) mg/dL Total Protein (6.4-8.2) g/dL Albumin (3.4-5.0) g/dL Globulin (2.6-4.0) g/dL Albumin/Globulin Ratio (0.9-1.6) Lipase (73-393) U/L Urine Color YELLOW Urine Appearance CLEAR Urine pH 7.5 (5.0-8.0) Ur Specific [place] 1.015 (1.001-1.035) Urine Protein TRACE H (NEGATIVE) mg/dL Urine Glucose (UA) NEGATIVE (NEGATIVE) mg/dL Urine Ketones NEGATIVE (NEGATIVE) mg/dL Urine Occult Blood TRACE-INTACT H (NEGATIVE) Urine Nitrite NEGATIVE (NEGATIVE) Urine Bilirubin NEGATIVE (NEGATIVE) Urine Urobilinogen 4.0 H (<2.0) EU/dL Ur Leukocyte Esterase NEGATIVE (NEGATIVE) Urine RBC 2-3 (0-2/HPF) Urine WBC 0-1 (0-5/HPF) Ur Epithelial Cells NOT SEEN (NONE-FEW) Amorphous Sediment RARE (NEGATIVE) Urine Bacteria RARE (NEGATIVE) Urine Mucus RARE (NONE-MOD) Result Diagrams: 01/27/21 16:45 01/27/21 16:45 Sepsis Event Note - Evaluation Sepsis Screening Result: Possible Sepsis Risk - Focused Exam Vital Signs: Vital Signs Temp Temp Temp Pulse Resp BP Pulse Ox 01/27/21 18:58 100.6 F 01/27/21 18:53 96 18 108/56 L 96 01/27/21 17:53 101.3 F H 100 18 122/74 95 01/27/21 16:46 126 H 18 141/68 H 96 01/27/21 16:42 101 F H 01/27/21 15:55 100.7 F H 125 H 20 123/79 95 - Problem List & Annotations (1) Pulmonary infarct SNOMED Code(s): 09953505 Code(s): I26.99 - OTHER PULMONARY EMBOLISM WITHOUT ACUTE COR PULMONALE Status: Acute Current Visit: Yes (2) Pulmonary infection SNOMED Code(s): 361053292 Code(s): J18.9 - PNEUMONIA, UNSPECIFIED ORGANISM Status: Acute Current Visit: Yes - Problem List Review Problem List Initiated/Reviewed/Updated: Yes - My Orders Last 24 Hours: My Active Orders 01/27/21 Dinner Regular Diet [DIET] 01/27/21 19:50 Communication Order [RC] PRN Oxygen Therapy [RC] PRN Up ad Yvonne [RC] ASDIRECTED VTE/DVT Education [RC] PER UNIT ROUTINE Vital Signs [RC] Q4H Acetaminophen [TylenoL] 650 mg PO Q4H PRN Morphine 2 mg IVPUSH Q2H PRN Ondansetron [Zofran ODT] 4 mg PO Q4H PRN Sodium Chloride 0.9% [Normal Saline] 10 ml IV ASDIRECTED PRN Sodium Chloride 0.9% [Saline Flush] 10 ml FLUSH ASDIRECTED PRN Sodium Chloride 0.9% [Saline Flush] 2.5 ml FLUSH ASDIRECTED PRN Peripheral IV Insertion Adult [OM.PC] Routine Resuscitation Status Routine 01/27/21 19:51 Cardiac Monitoring [RC] CONTINUOUS Pulse Oximetry [RC] CONTINUOUS 01/27/21 19:54 Sequential Compression Device [OM.PC] Per Unit Routine 01/27/21 19:58 Antiembolic Devices [RC] PER UNIT ROUTINE 01/27/21 22:30 SODIUM,NA [CHEM] Timed 01/28/21 05:11 CBC W/O DIFF,HEMOGRAM [HEME] AM CBC WITH AUTO DIFF [HEME] AM LACTIC ACID [CHEM] AM 01/28/21 09:00 lamoTRIgine 100 mg PO DAILY - Plan Plan:: Patient is a 35-year-old gentleman with past medical history of depression a nxiety and bipolar disorder otherwise healthy. Was seen in the ED approximately 1 week prior due to flulike symptoms was found to be Covid negative. Over the weekend had intermittent fevers, decreased appetite, and has newly developed chest and flank pain. Describes pain as a sharp pain in his chest radiating to his flank 8 out of 10 on the pain scale, has tried using [id number] Tylenol/ibuprofen. Denies any significant shortness of breath, palpitations, dizziness, cough, sputum production denies any recent travel or sick contacts. Patient was found to be febrile and tachycardic upon presentation in the ED. Had a thorough work-up as he met sepsis criteria. CT Abdo pelvis found a wedge consolidation possible infection versus infarct of the right lower lobe. Immediately started on broad-spectrum antibiotics and full dose heparin.
--- NOTE | 2021-01-27 20:25 | PCM.HP.2 ---
H&P History of Present Illness - General Date of Service: 01/27/21 Admit Problem/Dx: Admission Diagnosis/Problem Admission Diagnosis/Problem Pulmonary infarction Source of Information: Patient History Limitations: Reports: No Limitations - History of Present Illness Initial Comments - Free Text/Narative: Patient is a 35-year-old gentleman with no significant past medical history except for anxiety and depression. Presented with fevers, diarrhea, flank pain since last t 3 days was thoroughly worked up in the ED for sepsis as he presented with fever and tachycardia. Patient also complained of chest and right flank pain noted to be 8 out of 10 on the pain scale, has tried using ibuprofen and Tylenol. Flulike symptoms have improved.has associated fever, chills, shortness of breath and palpitations. CT Abdo pelvis demonstrated wedgelike area in the right lower lung lobe possible infarct versus infection, suggested CT. Patient was started on full dose heparin will undergo CT angio in the morning to evaluate for PE. Quality: Reports: Sharp Severity: Moderate Improves with: Reports: Medication, Rest Worsens with: Reports: Breathing (Deep breaths), Other (Talking), Movement Context: Denies: Sick Contact Associated Symptoms: Reports: Fever/Chills, Loss of Appetite, Shortness of Breath Right flank Pain Score (Numeric/FACES): 8 - Related Data Allergies/Adverse Reactions: Allergies Allergy/AdvReac Type Severity Reaction Status Date / Time No Known Allergies Allergy Verified 01/27/21 15:54 Home Medications: Home Meds lamoTRIgine [Lamictal] 100 mg PO DAILY 04/02/18 [History] Past Medical History - Past Health History Medical/Surgical History: Denies Medical/Surgical History HEENT History: Reports: None Cardiovascular History: Reports: None Respiratory History: Reports: None Gastrointestinal History: Reports: Other (See Below) Other Gastrointestinal History: occasional heartburn Genitourinary History: Reports: None Musculoskeletal History: Reports: None Neurological History: Reports: None Psychiatric History: Reports: Anxiety, Bipolar Endocrine/Metabolic History: Reports: None Hematologic History: Reports: None Immunologic History: Reports: None Oncologic (Cancer) History: Reports: None Dermatologic History: Reports: None - Infectious Disease History Infectious Disease History: Reports: Chicken Pox - Past Surgical History Head Surgeries/Procedures: Reports: None HEENT Surgical History: Reports: None Cardiovascular Surgical History: Reports: None Respiratory Surgical History: Reports: None GI Surgical History: Reports: None Male Surgical History: Reports: None Endocrine Surgical History: Reports: None Neurological Surgical History: Reports: None Musculoskeletal Surgical History: Reports: None Oncologic Surgical History: Reports: None Dermatological Surgical History: Reports: None Social & Family History - Family History Family Medical History: No Pertinent Family History - Tobacco Use Tobacco Use Status *Q: Former Tobacco User Used Tobacco, but Quit: Yes Month/Year Tobacco Last Used: 8 days - Caffeine Use Caffeine Use: Reports: None - Recreational Drug Use Recreational Drug Use: Yes Recreational Drug Type: Reports: Marijuana/Hashish H&P Review of Systems - Review of Systems: Review Of Systems: See Below General: Reports: Fever, Chills, Weakness, Decreased Appetite HEENT: Reports: No Symptoms Pulmonary: Reports: Shortness of Breath, Pleuritic Chest Pain Cardiovascular: Reports: Chest Pain, Palpitations. Denies: Lightheadedness, Syncope Gastrointestinal: Reports: Abdominal Pain, Decreased Appetite, Nausea Genitourinary: Reports: No Symptoms Musculoskeletal: Reports: No Symptoms Skin: Reports: No Symptoms Psychiatric: Reports: No Symptoms Neurological: Reports: No Symptoms Hematologic/Lymphatic: Reports: No Symptoms Immunologic: Reports: No Symptoms Exam - Exam Exam: See Below - Vital Signs Vital Signs: Last Vital Signs Temp 100.6 F 01/27/21 18:58 Pulse 96 01/27/21 18:53 Resp 18 01/27/21 18:53 BP 108/56 L 01/27/21 18:53 Pulse Ox 96 01/27/21 18:53 Weight: 160 lb - Exam Quality Assessment: DVT Prophylaxis General: Alert, Oriented, Cooperative, Moderate Distress HEENT: Conjunctiva Clear, EACs Clear, EOMI, Mucosa Moist & [place], Nares Patent, Normal Nasal Septum, Posterior Pharynx Clear, PERRLA Neck: Supple, Trachea Midline Lungs: Clear to Auscultation, Normal Respiratory Effort Cardiovascular: Regular Rhythm, Normal S1, Normal S2, Tachycardia GI/Abdominal Exam: Normal Bowel Sounds, Soft, Non-Tender, No Organomegaly, No Distention, No Abnormal Bruit, Tender. No: Guarding, Rigid, Rebound Peripheral Pulses: 2+: Carotid (L), Carotid (R), Dorsalis Pedis (L), Dorsalis Pedis (R) Skin: Warm, Dry, Intact Neurological: Cranial Nerves Intact, Reflexes Equal Bilateral Neuro Extensive - Mental Status: Alert, Oriented x3, Normal Mood/Affect, Normal Cognition, Memory Intact Neuro Extensive - Motor, Sensory, Reflexes: CN II-XII Intact, Normal Reflexes Psychiatric: Alert, Normal Affect, Normal Mood - Patient Data Lab Results Last 24 hrs: Laboratory Results - last 24 hr 01/27/21 01/27/21 01/27/21 Range/Units 16:45 16:45 16:45 WBC 14.75 H (4.0-11.0) K/uL RBC 4.41 L (4.50-5.90) M/uL Hgb 12.8 L (13.0-17.0) g/dL Hct 38.0 (38.0-50.0) % MCV 86.2 (80.0-98.0) fL MCH 29.0 (27.0-32.0) pg MCHC 33.7 (31.0-37.0) g/dL RDW Std Deviation 43.3 (28.0-62.0) fl RDW Coeff of Willy 14 (11.0-15.0) % Plt Count 316 (150-400) K/uL MPV 10.10 (7.40-12.00) fL Neut % (Auto) 87.2 H (48.0-80.0) % Lymph % (Auto) 6.4 L (16.0-40.0) % [place] % (Auto) 6.2 (0.0-15.0) % Eos % (Auto) 0.1 (0.0-7.0) % Baso % (Auto) 0.1 (0.0-1.5) % Neut # (Auto) 12.8 H (1.4-5.7) K/uL Lymph # (Auto) 1.0 (0.6-2.4) K/uL [place] # (Auto) 0.9 H (0.0-0.8) K/uL Eos # (Auto) 0.0 (0.0-0.7) K/uL Baso # (Auto) 0.0 (0.0-0.1) K/uL Nucleated RBC % 0.0 /100WBC Nucleated RBCs # 0 K/uL INR APTT (18.6-31.3) SEC Sodium 129 L (136-148) mmol/L Potassium 3.9 (3.5-5.1) mmol/L Chloride 94 L (98-107) mmol/L Carbon Dioxide 25.7 (21.0-32.0) mmol/L BUN 12 (7.0-18.0) mg/dL Creatinine 1.1 (0.8-1.3) mg/dL Est Cr Clr Drug Dosing 97.13 mL/min Estimated GFR (MDRD) > 60.0 ml/min Glucose 129 H (74-106) mg/dL Lactic Acid 1.6 (0.4-2.0) mmol/L Calcium 8.2 L (8.5-10.1) mg/dL Magnesium 2.2 (1.8-2.4) mg/dL Total Bilirubin 0.9 (0.2-1.0) mg/dL AST 139 H (15-37) IU/L ALT 215 H (14-63) IU/L Alkaline Phosphatase 293 H (46-116) U/L Troponin I < 0.050 (0.000-0.056) ng/mL C-Reactive Protein 15.90 H (0.00-0.90) mg/dL Total Protein 7.2 (6.4-8.2) g/dL Albumin 2.5 L (3.4-5.0) g/dL Globulin 4.7 H (2.6-4.0) g/dL Albumin/Globulin Ratio 0.5 L (0.9-1.6) Lipase 167 (73-393) U/L Urine Color Urine Appearance Urine pH (5.0-8.0) Ur Specific Jones (1.001-1.035) Urine Protein (NEGATIVE) mg/dL Urine Glucose (UA) (NEGATIVE) mg/dL Urine Ketones (NEGATIVE) mg/dL Urine Occult Blood (NEGATIVE) Urine Nitrite (NEGATIVE) Urine Bilirubin (NEGATIVE) Urine Urobilinogen (<2.0) EU/dL Ur Leukocyte Esterase (NEGATIVE) Urine RBC (0-2/HPF) Urine WBC (0-5/HPF) Ur Epithelial Cells (NONE-FEW) Amorphous Sediment (NEGATIVE) Urine Bacteria (NEGATIVE) Urine Mucus (NONE-MOD) 01/27/21 01/27/21 Range/Units 16:45 17:26 WBC (4.0-11.0) K/uL RBC (4.50-5.90) M/uL Hgb (13.0-17.0) g/dL Hct (38.0-50.0) % MCV (80.0-98.0) fL MCH (27.0-32.0) pg MCHC (31.0-37.0) g/dL RDW Std Deviation (28.0-62.0) fl RDW Coeff of Willy (11.0-15.0) % Plt Count (150-400) K/uL MPV (7.40-12.00) fL Neut % (Auto) (48.0-80.0) % Lymph % (Auto) (16.0-40.0) % [place] % (Auto) (0.0-15.0) % Eos % (Auto) (0.0-7.0) % Baso % (Auto) (0.0-1.5) % Neut # (Auto) (1.4-5.7) K/uL Lymph # (Auto) (0.6-2.4) K/uL [place] # (Auto) (0.0-0.8) K/uL Eos # (Auto) (0.0-0.7) K/uL Baso # (Auto) (0.0-0.1) K/uL Nucleated RBC % /100WBC Nucleated RBCs # K/uL INR 1.09 APTT 27.3 (18.6-31.3) SEC Sodium (136-148) mmol/L Potassium (3.5-5.1) mmol/L Chloride (98-107) mmol/L Carbon Dioxide (21.0-32.0) mmol/L BUN (7.0-18.0) mg/dL Creatinine (0.8-1.3) mg/dL Est Cr Clr Drug Dosing mL/min Estimated GFR (MDRD) ml/min Glucose (74-106) mg/dL Lactic Acid (0.4-2.0) mmol/L Calcium (8.5-10.1) mg/dL Magnesium (1.8-2.4) mg/dL Total Bilirubin (0.2-1.0) mg/dL AST (15-37) IU/L ALT (14-63) IU/L Alkaline Phosphatase (46-116) U/L Troponin I (0.000-0.056) ng/mL C-Reactive Protein (0.00-0.90) mg/dL Total Protein (6.4-8.2) g/dL Albumin (3.4-5.0) g/dL Globulin (2.6-4.0) g/dL Albumin/Globulin Ratio (0.9-1.6) Lipase (73-393) U/L Urine Color YELLOW Urine Appearance CLEAR Urine pH 7.5 (5.0-8.0) Ur Specific Jones 1.015 (1.001-1.035) Urine Protein TRACE H (NEGATIVE) mg/dL Urine Glucose (UA) NEGATIVE (NEGATIVE) mg/dL Urine Ketones NEGATIVE (NEGATIVE) mg/dL Urine Occult Blood TRACE-INTACT H (NEGATIVE) Urine Nitrite NEGATIVE (NEGATIVE) Urine Bilirubin NEGATIVE (NEGATIVE) Urine Urobilinogen 4.0 H (<2.0) EU/dL Ur Leukocyte Esterase NEGATIVE (NEGATIVE) Urine RBC 2-3 (0-2/HPF) Urine WBC 0-1 (0-5/HPF) Ur Epithelial Cells NOT SEEN (NONE-FEW) Amorphous Sediment RARE (NEGATIVE) Urine Bacteria RARE (NEGATIVE) Urine Mucus RARE (NONE-MOD) Result Diagrams: 01/27/21 16:45 01/27/21 16:45 Sepsis Event Note - Evaluation Sepsis Screening Result: Possible Sepsis Risk - Focused Exam Vital Signs: Vital Signs Temp Temp Temp Pulse Resp BP Pulse Ox 01/27/21 18:58 100.6 F 01/27/21 18:53 96 18 108/56 L 96 01/27/21 17:53 101.3 F H 100 18 122/74 95 01/27/21 16:46 126 H 18 141/68 H 96 01/27/21 16:42 101 F H 01/27/21 15:55 100.7 F H 125 H 20 123/79 95 - Problem List (1) Pulmonary infarct SNOMED Code(s): 02508217 ICD Code: I26.99 - OTHER PULMONARY EMBOLISM WITHOUT ACUTE COR PULMONALE Status: Acute Current Visit: Yes (2) Pulmonary infection SNOMED Code(s): 034692332 ICD Code: J18.9 - PNEUMONIA, UNSPECIFIED ORGANISM Status: Acute Current Visit: Yes Problem List Initiated/Reviewed/Updated: Yes Orders Last 24hrs: Active Orders 24 hr Category Date Time Status Patient Status [ADT] Routine ADT 01/27/21 18:35 Active Antiembolic Devices [RC] PER UNIT ROUTINE Care 01/27/21 19:58 Ordered Cardiac Monitoring [RC] . DIRECTED Care 01/27/21 16:06 Active Cardiac Monitoring [RC] CONTINUOUS Care 01/27/21 19:51 Ordered Communication Order [RC] PRN Care 01/27/21 19:50 Ordered EKG Documentation Completion [RC] STAT Care 01/27/21 16:06 Active Oxygen Therapy [RC] PRN Care 01/27/21 19:50 Ordered Pulse Oximetry [RC] ASDIRECTED Care 01/27/21 16:06 Active Pulse Oximetry [RC] CONTINUOUS Care 01/27/21 19:51 Ordered Up ad Yvonne [RC] ASDIRECTED Care 01/27/21 19:50 Ordered VTE/DVT Education [RC] PER UNIT ROUTINE Care 01/27/21 19:50 Ordered Vital Signs [RC] Q4H Care 01/27/21 19:50 Ordered Regular Diet [DIET] Diet 01/27/21 Dinner Ordered CBC W/O DIFF,HEMOGRAM [HEME] AM Lab 01/28/21 05:11 Ordered CBC WITH AUTO DIFF [HEME] AM Lab 01/28/21 05:11 Ordered COVID-19/FLU A+B [MOLEC] Stat Lab 01/27/21 19:23 Received CULTURE BLOOD [BC] Stat Lab 01/27/21 16:13 Received CULTURE BLOOD [BC] Stat Lab 01/27/21 16:45 Received LACTIC ACID [CHEM] AM Lab 01/28/21 05:11 Ordered PTT,PARTIAL THROMBOPLSTIN TIME [COAG] Q6H Lab 01/27/21 18:45 Ordered PTT,PARTIAL THROMBOPLSTIN TIME [COAG] Q6H Lab 01/28/21 00:45 Ordered PTT,PARTIAL THROMBOPLSTIN TIME [COAG] Q6H Lab 01/28/21 06:45 Ordered PTT,PARTIAL THROMBOPLSTIN TIME [COAG] Q6H Lab 01/28/21 12:45 Ordered PTT,PARTIAL THROMBOPLSTIN TIME [COAG] Q6H Lab 01/28/21 18:45 Ordered PTT,PARTIAL THROMBOPLSTIN TIME [COAG] Q6H Lab 01/29/21 00:45 Ordered PTT,PARTIAL THROMBOPLSTIN TIME [COAG] Q6H Lab 01/29/21 06:45 Ordered SODIUM,NA [CHEM] Timed Lab 01/27/21 22:30 Ordered Acetaminophen [TylenoL] Med 01/27/21 19:50 Ordered 650 mg PO Q4H PRN Heparin Sodium/0.45% NaCl [Heparin 25,000 Units in 1/2 Med 01/27/21 18:45 Active NS 500 ML] 500 ml IV TITRATE Morphine Med 01/27/21 19:50 Ordered 2 mg IVPUSH Q2H PRN Ondansetron [Zofran ODT] Med 01/27/21 19:50 Ordered 4 mg PO Q4H PRN Sodium Chloride 0.9% [Normal Saline] Med 01/27/21 19:50 Ordered 10 ml IV ASDIRECTED PRN Sodium Chloride 0.9% [Normal Saline] 1,000 ml Med 01/27/21 19:45 Active IV ASDIRECTED Sodium Chloride 0.9% [Saline Flush] Med 01/27/21 16:06 Active 10 ml FLUSH ASDIRECTED PRN Sodium Chloride 0.9% [Saline Flush] Med 01/27/21 19:50 Active 10 ml FLUSH ASDIRECTED PRN Sodium Chloride 0.9% [Saline Flush] Med 01/27/21 16:06 Active 2.5 ml FLUSH ASDIRECTED PRN Sodium Chloride 0.9% [Saline Flush] Med 01/27/21 19:50 Ordered 2.5 ml FLUSH ASDIRECTED PRN lamoTRIgine Med 01/28/21 09:00 Ordered 100 mg PO DAILY Blood Culture x2 Reflex Set [OM.PC] Stat Ot 01/27/21 16:08 Ordered Peripheral IV Insertion Adult [OM.PC] Routine Ot 01/27/21 19:50 Ordered Saline Lock Insert [OM.PC] Stat Ot 01/27/21 16:06 Ordered Sequential Compression Device [OM.PC] Per Unit Routine Ot 01/27/21 19:54 Ordered Resuscitation Status Routine Resus Stat 01/27/21 19:50 Ordered Medication Orders Acetaminophen (Acetaminophen 325 Mg Tab) 650 mg PO Q4H PRN PRN Reason: Pain (Mild 1-3)/fever Heparin Sodium/Sodium Chloride (Heparin 25,000 Units In 1/2 Ns 500 Ml) 500 mls @ 26.127 mls/hr IV TITRATE BETSY; Protocol Sodium Chloride (Normal Saline) 1,000 mls @ 999 mls/hr IV ASDIRECTED BETSY Lamotrigine (Lamotrigine 100 Mg Tab) 100 mg PO DAILY BETSY Morphine Sulfate (Morphine 10 Mg/Ml Syringe) 2 mg IVPUSH Q2H PRN PRN Reason: Pain (severe 7-10) Stop: 01/28/21 19:56 Ondansetron HCl (Ondansetron 4 Mg Tab.Dis) 4 mg PO Q4H PRN PRN Reason: nausea, able to take PO Sodium Chloride (Sodium Chloride 0.9% 10 Ml Syringe) 10 ml FLUSH ASDIRECTED PRN PRN Reason: Keep Vein Open Last Admin: 01/27/21 16:44 Dose: 10 ml Documented by: [id number] Sodium Chloride (Sodium Chloride 0.9% 2.5 Ml Syringe) 2.5 ml FLUSH ASDIRECTED PRN PRN Reason: Keep Vein Open Last Admin: 01/27/21 16:44 Dose: 2.5 ml Documented by: [id number] Sodium Chloride (Sodium Chloride 0.9% 10 Ml Syringe) 10 ml FLUSH ASDIRECTED PRN PRN Reason: Keep Vein Open Sodium Chloride (Sodium Chloride 0.9% 2.5 Ml Syringe) 2.5 ml FLUSH ASDIRECTED PRN PRN Reason: Keep Vein Open Sodium Chloride (Sodium Chloride 0.9% 10 Ml Sdv) 10 ml IV ASDIRECTED PRN PRN Reason: IV Use Assessment/Plan Comment:: 35-year-old male previously healthy with history of depression on lamotrigine. Admitted for possible pulmonary infarct versus infection was started on full dose heparin and broad-spectrum antibiotics. 1. Possible pulmonary infarct: Covid test pending Febrile, tachycardic, normotensive, unremarkable chest examination, however patient presents with shortness of breath, pleuritic chest pain. Chest x-ray: Unremarkable CT Abdo pelvis demonstrated bilateral pleural fluid right more prominent than left with mild bibasilar compressing atelectasis. Noted lateral right lower lobe wedge-like region 2.4 cm indicating possible consolidation due to infarct versus pulmonary infection. Started on full dose heparin, normal PT/INR, patient will undergo CT angio in the a.m. Monitor closely on telemetry, previously noted normal EKG. 2. Sepsis secondary to possible pulmonary infection: Febrile temperature 101.3, tachycardia is improved to 100 after receiving bolus of normal saline. Normal lactate of 1.6, CRP elevated 15.9. 2x blood cultures collected, patient started on antibiotics as per vitals and CT findings discussed above. Will narrow antibiotics based on cultures. 3. Hyponatremia secondary to dehydration: Sodium 129, patient asymptomatic, currently meets sepsis criteria receiving second bolus, Covid results pending, if Covid negative we will continue with 125 maintenance fluids to help replete sodium and recheck sodium level at 2230 this evening. Continue to monitor closely. 4. Transaminitis: Mildly elevated, continue to monitor will reevaluate in the a.m. 5. Past medical history of depression, anxiety and bipolar disorder: Continue home dose of lamotrigine 100 mg daily. CODE STATUS: DNR/DNI Diet: Regular Activity: Up ad yvonne. DVT prophylaxis: Receiving full dose heparin and SCDs GI prophylaxis: Pantoprazole 40
[2021-01-27 20:34] LABS: CORONAVIRUS COVID-19 NAA NEGATIVE (NEGATIVE); INFLUENZA A NAA NEGATIVE (NEGATIVE); INFLUENZA B NAA NEGATIVE (NEGATIVE)
[2021-01-27] MEDS: Heparin Sodium/0.45% NaCl 500 ML IV SCH (20:59)
[2021-01-28] MEDS: Pantoprazole 40 MG in Sodium Chloride 0.9% 10 ML IV SCH ×2 (00:29→20:06)
[2021-01-28 02:47] LABS: BLOOD UREA NITROGEN,BUN 13 mg/dL (7.0-18.0); CARBON DIOXIDE,CO2 25.3 mmol/L (21.0-32.0); CHLORIDE,CL 99 mmol/L (98-107); GLUCOSE RANDOM 116 mg/dL (74-106); POTASSIUM,K 4.2 mmol/L (3.5-5.1); SODIUM,NA 135 mmol/L (136-148)
[2021-01-28] MEDS ORDERED: Heparin Sodium 5,000 Units/ML Vial IVPUSH ONE ×2 (03:30→09:17)
[2021-01-28] MEDS: Acetaminophen 325 MG Tab PO PRN ×2 (04:07→20:10)
[2021-01-28] MEDS ORDERED: lamoTRIgine 100 MG Tab PO SCH (09:00)
[2021-01-28] MEDS ORDERED: cefTRIAXone 1 GM in Premix Bag 1 BAG IV SCH (11:00)
[2021-01-28] MEDS ORDERED: LAMOTRIGINE 100 MG PO SCH (14:00)
[2021-01-28] MEDS: Heparin Sodium/0.45% NaCl 500 ML IV SCH (14:22)
--- NOTE | 2021-01-28 14:48 | CT ---
For Patients: As a result of the Century Cures Act, medical imaging exams and procedure reports are released immediately into your electronic medical record. You may view this report before your referring provider. If you have questions, please contact your health care provider. indication: Pleuritic chest pain, fevers and PE Technique: Volumetric multidetector CT images of the chest were obtained after the administration of IV contrast. 100 cc Isovue 370 low osmolar intravenous contrast Comparison: None available. Findings: The thoracic inlet and thyroid gland are unremarkable. The thoracic aorta is nonaneurysmal. There is no central filling defect to suggest pulmonary embolism. There are reactive mediastinal and hilar lymph nodes. There are somewhat shotty bilateral axillary lymph nodes. The trachea and bronchi are well aerated without significant bronchiectasis. There are multiple areas of pleural-based somewhat ground-glass and cavitary appearing consolidative opacity within the bilateral upper lobes the largest in the left upper lobe measuring 2.5 centimeters. There are dependent basilar consolidations. There is moderate interlobular septal thickening likely representing pulmonary edema. There is no pneumothorax. The partially visualized upper abdominal viscera are within normal limits. The thoracic vertebral body heights demonstrate endplate Schmorl`s defects. There is no significant spondylolisthesis or displaced fracture. Impression: Demonstration of multiple areas of pleural-based ground-glass and cavitary appearing consolidative opacities throughout the bilateral hemithoraces with superimposed pulmonary edema and bibasilar atelectasis and/or additional infiltrates. These findings are concerning for potential septic embolization versus atypical inflammatory change such as Justus`s granulomatosis. Correlate with history of clinical symptoms and serum laboratories. No evidence of pulmonary embolus. Please note that all CT scans at this facility use dose modulation, iterative reconstruction, and/or weight-based dosing when appropriate to reduce radiation dose to as low as reasonably achievable. Dictated by Bakari Huerta MD @ 01/28/2021 2:47:[address] Bakari Huerta @ Jan 28 2021 2:47PM
--- NOTE | 2021-01-28 15:18 | PCM.SN.2 ---
- Free Text/Narrative Note: CTA report returned, no evidence of pulmonary embolus. There was demonstrated multiple areas of pleural-based groundglass and cavitary appearing consolidative opacities throughout the bilateral thoraces with samples pulmonary edema and bibasilar atelectasis and/or additional infiltrates. The radiologist feels these are concerning for potential septic embolization versus atypical inflammatory changes correlate with clinical history and laboratory. These results were discussed with Dr. Chaparro. Dr. Chaparro and myself spoke with patient this afternoon regarding results and further treatment plans. Heparin drip to be stopped as no pulmonary embolus noted. Concern for septic emboli poses concern for infective endocarditis. 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 He reports he has no further need or he desire to use any further drugs. Spoke with pharmacy regarding dose of vancomycin to ensure this covering possible endocarditis. We will stop Rocephin and changed back to Zosyn 4.5 every 6 hours. We will continue with azithromycin and vancomycin. Will order stat echo to evaluate for vegetation. It was confronted the patient that he may need CAROL if TTE is negative for vegetation. Patient was counseled and would like to try getting the transthoracic echo first and if that showing positive then discussed with infectious disease any further recommendations. He does understand that if transthoracic echo is negative he will need to be transferred for transesophageal echo for further evaluation of infective endocarditis. We will repeat blood cultures now as 4/4 blood cultures positive on admission. Patient counseled on change in treatment plan and has no further questions or concerns at this time.
[2021-01-28] MEDS: Piperacillin/Tazobactam 4.5 GM in Sodium Chloride 0.9% 100 ML IV SCH ×2 (15:36→20:09)
[2021-01-28] MEDS ORDERED: Iopamidol 755 MG/ML 500 ML Multipack Bottle IVPUSH STA (15:54)
--- NOTE | 2021-01-28 17:23 | PCM.PN ---
- General Info Date of Service: 01/28/21 Admission Dx/Problem (Free Text): Admission Diagnosis/Problem Admission Diagnosis/Problem Pulmonary infarction Subjective Update: 35-year-old gentleman with past medical history of depression was admitted for PE versus pneumonia. As result started on full dose heparin and broad-spectrum antibiotics. Overnight patient developed fever of 100.8 as well as was tachycardic with a heart rate of 109. This morning states that he feels some fever and chills. Continues to have decreased appetite, however states that he is feeling slight improvement in his overall symptoms. Functional Status: Reports: Pain Controlled - Review of Systems General: Reports: Fever, Chills. Denies: Appetite HEENT: Reports: No Symptoms Pulmonary: Reports: Pleuritic Chest Pain. Denies: Shortness of Breath, Cough, Hemoptysis Cardiovascular: Reports: Chest Pain. Denies: Palpitations, Dyspnea on Exertion, Lightheadedness Gastrointestinal: Reports: No Symptoms Genitourinary: Reports: No Symptoms Musculoskeletal: Reports: No Symptoms Skin: Reports: No Symptoms Neurological: Reports: No Symptoms Psychiatric: Reports: No Symptoms - Patient Data Vitals - Most Recent: Last Vital Signs Temp 98.4 F 01/28/21 16:00 Pulse 99 01/28/21 16:00 Resp 20 01/28/21 16:00 BP 132/62 01/28/21 16:00 Pulse Ox 96 01/28/21 16:00 Weight - Most Recent: 156 lb I&O - Last 24 Hours: Intake & Output 01/28/21 01/28/21 01/28/21 06:59 14:59 22:59 Intake Total 1120 Balance 1120 Lab Results Last 24 Hours: Laboratory Results - last 24 hr 01/27/21 01/27/21 01/27/21 Range/Units 16:45 16:45 16:45 WBC (4.0-11.0) K/uL RBC (4.50-5.90) M/uL Hgb (13.0-17.0) g/dL Hct (38.0-50.0) % MCV (80.0-98.0) fL MCH (27.0-32.0) pg MCHC (31.0-37.0) g/dL RDW Std Deviation (28.0-62.0) fl RDW Coeff of Willy (11.0-15.0) % Plt Count (150-400) K/uL MPV (7.40-12.00) fL Neut % (Auto) (48.0-80.0) % Lymph % (Auto) (16.0-40.0) % Arthur % (Auto) (0.0-15.0) % Eos % (Auto) (0.0-7.0) % Baso % (Auto) (0.0-1.5) % Neut # (Auto) (1.4-5.7) K/uL Lymph # (Auto) (0.6-2.4) K/uL Arthur # (Auto) (0.0-0.8) K/uL Eos # (Auto) (0.0-0.7) K/uL Baso # (Auto) (0.0-0.1) K/uL Nucleated RBC % /100WBC Nucleated RBCs # K/uL INR 1.09 APTT 27.3 (18.6-31.3) SEC Sodium 129 L (136-148) mmol/L Potassium 3.9 (3.5-5.1) mmol/L Chloride 94 L (98-107) mmol/L Carbon Dioxide 25.7 (21.0-32.0) mmol/L BUN 12 (7.0-18.0) mg/dL Creatinine 1.1 (0.8-1.3) mg/dL Est Cr Clr Drug Dosing 97.13 mL/min Estimated GFR (MDRD) > 60.0 ml/min Glucose 129 H (74-106) mg/dL Lactic Acid 1.6 (0.4-2.0) mmol/L Calcium 8.2 L (8.5-10.1) mg/dL Magnesium 2.2 (1.8-2.4) mg/dL Total Bilirubin 0.9 (0.2-1.0) mg/dL AST 139 H (15-37) IU/L ALT 215 H (14-63) IU/L Alkaline Phosphatase 293 H (46-116) U/L Troponin I < 0.050 (0.000-0.056) ng/mL C-Reactive Protein 15.90 H (0.00-0.90) mg/dL Total Protein 7.2 (6.4-8.2) g/dL Albumin 2.5 L (3.4-5.0) g/dL Globulin 4.7 H (2.6-4.0) g/dL Albumin/Globulin Ratio 0.5 L (0.9-1.6) Lipase 167 (73-393) U/L Urine Color Urine Appearance Urine pH (5.0-8.0) Ur Specific Round O (1.001-1.035) Urine Protein (NEGATIVE) mg/dL Urine Glucose (UA) (NEGATIVE) mg/dL Urine Ketones (NEGATIVE) mg/dL Urine Occult Blood (NEGATIVE) Urine Nitrite (NEGATIVE) Urine Bilirubin (NEGATIVE) Urine Urobilinogen (<2.0) EU/dL Ur Leukocyte Esterase (NEGATIVE) Urine RBC (0-2/HPF) Urine WBC (0-5/HPF) Ur Epithelial Cells (NONE-FEW) Amorphous Sediment (NEGATIVE) Urine Bacteria (NEGATIVE) Urine Mucus (NONE-MOD) Influenza Type A RNA (NEGATIVE) Influenza Type B RNA (NEGATIVE) SARS-CoV-2 RNA (HELENA) (NEGATIVE) 01/27/21 01/27/21 01/27/21 Range/Units 17:26 19:23 20:11 WBC (4.0-11.0) K/uL RBC (4.50-5.90) M/uL Hgb (13.0-17.0) g/dL Hct (38.0-50.0) % MCV (80.0-98.0) fL MCH (27.0-32.0) pg MCHC (31.0-37.0) g/dL RDW Std Deviation (28.0-62.0) fl RDW Coeff of Willy (11.0-15.0) % Plt Count (150-400) K/uL MPV (7.40-12.00) fL Neut % (Auto) (48.0-80.0) % Lymph % (Auto) (16.0-40.0) % Arthur % (Auto) (0.0-15.0) % Eos % (Auto) (0.0-7.0) % Baso % (Auto) (0.0-1.5) % Neut # (Auto) (1.4-5.7) K/uL Lymph # (Auto) (0.6-2.4) K/uL Arthur # (Auto) (0.0-0.8) K/uL Eos # (Auto) (0.0-0.7) K/uL Baso # (Auto) (0.0-0.1) K/uL Nucleated RBC % /100WBC Nucleated RBCs # K/uL INR APTT 27.6 (18.6-31.3) SEC Sodium (136-148) mmol/L Potassium (3.5-5.1) mmol/L Chloride (98-107) mmol/L Carbon Dioxide (21.0-32.0) mmol/L BUN (7.0-18.0) mg/dL Creatinine (0.8-1.3) mg/dL Est Cr Clr Drug Dosing mL/min Estimated GFR (MDRD) ml/min Glucose (74-106) mg/dL Lactic Acid (0.4-2.0) mmol/L Calcium (8.5-10.1) mg/dL Magnesium (1.8-2.4) mg/dL Total Bilirubin (0.2-1.0) mg/dL AST (15-37) IU/L ALT (14-63) IU/L Alkaline Phosphatase (46-116) U/L Troponin I (0.000-0.056) ng/mL C-Reactive Protein (0.00-0.90) mg/dL Total Protein (6.4-8.2) g/dL Albumin (3.4-5.0) g/dL Globulin (2.6-4.0) g/dL Albumin/Globulin Ratio (0.9-1.6) Lipase (73-393) U/L Urine Color YELLOW Urine Appearance CLEAR Urine pH 7.5 (5.0-8.0) Ur Specific Round O 1.015 (1.001-1.035) Urine Protein TRACE H (NEGATIVE) mg/dL Urine Glucose (UA) NEGATIVE (NEGATIVE) mg/dL Urine Ketones NEGATIVE (NEGATIVE) mg/dL Urine Occult Blood TRACE-INTACT H (NEGATIVE) Urine Nitrite NEGATIVE (NEGATIVE) Urine Bilirubin NEGATIVE (NEGATIVE) Urine Urobilinogen 4.0 H (<2.0) EU/dL Ur Leukocyte Esterase NEGATIVE (NEGATIVE) Urine RBC 2-3 (0-2/HPF) Urine WBC 0-1 (0-5/HPF) Ur Epithelial Cells NOT SEEN (NONE-FEW) Amorphous Sediment RARE (NEGATIVE) Urine Bacteria RARE (NEGATIVE) Urine Mucus RARE (NONE-MOD) Influenza Type A RNA NEGATIVE (NEGATIVE) Influenza Type B RNA NEGATIVE (NEGATIVE) SARS-CoV-2 RNA (HELENA) NEGATIVE (NEGATIVE) 01/27/21 01/28/21 01/28/21 Range/Units 22:50 02:30 02:30 WBC 14.58 H (4.0-11.0) K/uL RBC 3.85 L (4.50-5.90) M/uL Hgb 11.2 L (13.0-17.0) g/dL Hct 33.2 L (38.0-50.0) % MCV 86.2 (80.0-98.0) fL MCH 29.1 (27.0-32.0) pg MCHC 33.7 (31.0-37.0) g/dL RDW Std Deviation 43.5 (28.0-62.0) fl RDW Coeff of Willy 14 (11.0-15.0) % Plt Count 276 (150-400) K/uL MPV 10.00 (7.40-12.00) fL Neut % (Auto) 83.4 H (48.0-80.0) % Lymph % (Auto) 6.9 L (16.0-40.0) % Arthur % (Auto) 9.2 (0.0-15.0) % Eos % (Auto) 0.4 (0.0-7.0) % Baso % (Auto) 0.1 (0.0-1.5) % Neut # (Auto) 12.2 H (1.4-5.7) K/uL Lymph # (Auto) 1.0 (0.6-2.4) K/uL Arthur # (Auto) 1.3 H (0.0-0.8) K/uL Eos # (Auto) 0.1 (0.0-0.7) K/uL Baso # (Auto) 0.0 (0.0-0.1) K/uL Nucleated RBC % 0.0 /100WBC Nucleated RBCs # 0 K/uL INR APTT 31.1 (18.6-31.3) SEC Sodium 138 (136-148) mmol/L Potassium (3.5-5.1) mmol/L Chloride (98-107) mmol/L Carbon Dioxide (21.0-32.0) mmol/L BUN (7.0-18.0) mg/dL Creatinine (0.8-1.3) mg/dL Est Cr Clr Drug Dosing mL/min Estimated GFR (MDRD) ml/min Glucose (74-106) mg/dL Lactic Acid (0.4-2.0) mmol/L Calcium (8.5-10.1) mg/dL Magnesium (1.8-2.4) mg/dL Total Bilirubin (0.2-1.0) mg/dL AST (15-37) IU/L ALT (14-63) IU/L Alkaline Phosphatase (46-116) U/L Troponin I (0.000-0.056) ng/mL C-Reactive Protein (0.00-0.90) mg/dL Total Protein (6.4-8.2) g/dL Albumin (3.4-5.0) g/dL Globulin (2.6-4.0) g/dL Albumin/Globulin Ratio (0.9-1.6) Lipase (73-393) U/L Urine Color Urine Appearance Urine pH (5.0-8.0) Ur Specific Round O (1.001-1.035) Urine Protein (NEGATIVE) mg/dL Urine Glucose (UA) (NEGATIVE) mg/dL Urine Ketones (NEGATIVE) mg/dL Urine Occult Blood (NEGATIVE) Urine Nitrite (NEGATIVE) Urine Bilirubin (NEGATIVE) Urine Urobilinogen (<2.0) EU/dL Ur Leukocyte Esterase (NEGATIVE) Urine RBC (0-2/HPF) Urine WBC (0-5/HPF) Ur Epithelial Cells (NONE-FEW) Amorphous Sediment (NEGATIVE) Urine Bacteria (NEGATIVE) Urine Mucus (NONE-MOD) Influenza Type A RNA (NEGATIVE) Influenza Type B RNA (NEGATIVE) SARS-CoV-2 RNA (HELENA) (NEGATIVE) 01/28/21 01/28/21 01/28/21 Range/Units 02:30 02:30 08:10 WBC (4.0-11.0) K/uL RBC (4.50-5.90) M/uL Hgb (13.0-17.0) g/dL Hct (38.0-50.0) % MCV (80.0-98.0) fL MCH (27.0-32.0) pg MCHC (31.0-37.0) g/dL RDW Std Deviation (28.0-62.0) fl RDW Coeff of Willy (11.0-15.0) % Plt Count (150-400) K/uL MPV (7.40-12.00) fL Neut % (Auto) (48.0-80.0) % Lymph % (Auto) (16.0-40.0) % Arthur % (Auto) (0.0-15.0) % Eos % (Auto) (0.0-7.0) % Baso % (Auto) (0.0-1.5) % Neut # (Auto) (1.4-5.7) K/uL Lymph # (Auto) (0.6-2.4) K/uL Arthur # (Auto) (0.0-0.8) K/uL Eos # (Auto) (0.0-0.7) K/uL Baso # (Auto) (0.0-0.1) K/uL Nucleated RBC % /100WBC Nucleated RBCs # K/uL INR APTT 40.9 H (18.6-31.3) SEC Sodium 135 L (136-148) mmol/L Potassium 4.2 (3.5-5.1) mmol/L Chloride 99 (98-107) mmol/L Carbon Dioxide 25.3 (21.0-32.0) mmol/L BUN 13 (7.0-18.0) mg/dL Creatinine 0.9 (0.8-1.3) mg/dL Est Cr Clr Drug Dosing 115.75 mL/min Estimated GFR (MDRD) > 60.0 ml/min Glucose 116 H (74-106) mg/dL Lactic Acid 0.9 (0.4-2.0) mmol/L Calcium 7.9 L (8.5-10.1) mg/dL Magnesium (1.8-2.4) mg/dL Total Bilirubin 1.0 (0.2-1.0) mg/dL AST 88 H (15-37) IU/L ALT 166 H (14-63) IU/L Alkaline Phosphatase 253 H (46-116) U/L Troponin I (0.000-0.056) ng/mL C-Reactive Protein (0.00-0.90) mg/dL Total Protein 6.3 L (6.4-8.2) g/dL Albumin 2.1 L (3.4-5.0) g/dL Globulin 4.2 H (2.6-4.0) g/dL Albumin/Globulin Ratio 0.5 L (0.9-1.6) Lipase (73-393) U/L Urine Color Urine Appearance Urine pH (5.0-8.0) Ur Specific Round O (1.001-1.035) Urine Protein (NEGATIVE) mg/dL Urine Glucose (UA) (NEGATIVE) mg/dL Urine Ketones (NEGATIVE) mg/dL Urine Occult Blood (NEGATIVE) Urine Nitrite (NEGATIVE) Urine Bilirubin (NEGATIVE) Urine Urobilinogen (<2.0) EU/dL Ur Leukocyte Esterase (NEGATIVE) Urine RBC (0-2/HPF) Urine WBC (0-5/HPF) Ur Epithelial Cells (NONE-FEW) Amorphous Sediment (NEGATIVE) Urine Bacteria (NEGATIVE) Urine Mucus (NONE-MOD) Influenza Type A RNA (NEGATIVE) Influenza Type B RNA (NEGATIVE) SARS-CoV-2 RNA (HELENA) (NEGATIVE) Kristofer Results Last 24 Hours: Microbiology 01/28/21 15:14 Anaerobic Blood Culture - Final Blood - Venous 01/27/21 16:13 Aerobic Blood Culture - Preliminary Blood - Venous Anaerobic Blood Culture - Preliminary 01/27/21 16:45 Aerobic Blood Culture - Preliminary Blood - Venous - Lab Draw Anaerobic Blood Culture - Preliminary Med Orders - Current: Current Medications Acetaminophen (Acetaminophen 325 Mg Tab) 650 mg PO Q4H PRN PRN Reason: Pain (Mild 1-3)/fever Last Admin: 01/28/21 04:07 Dose: 650 mg Documented by: Enoxaparin Sodium (Enoxaparin 40 Mg/0.4 Ml Syringe) 40 mg SUBCUT Q24H [facility] Pantoprazole Sodium 40 mg/ (Sodium Chloride) 10 mls @ 300 mls/hr IV Q24H [facility] Last Admin: 01/28/21 00:29 Dose: 300 mls/hr Documented by: Vancomycin HCl 1 gm/ Sodium (Chloride) 250 mls @ 166 mls/hr IV Q8H [facility] Last Admin: 01/28/21 12:05 Dose: 166 mls/hr Documented by: Azithromycin 500 mg/ Sodium (Chloride) 250 mls @ 250 mls/hr IV Q24H [facility] Piperacillin Sod/Tazobactam (Sod 4.5 gm/ Sodium Chloride) 100 mls @ 100 mls/hr IV Q6H [facility] Last Admin: 01/28/21 15:36 Dose: 100 mls/hr Documented by: Morphine Sulfate (Morphine 10 Mg/Ml Syringe) 2 mg IVPUSH Q2H PRN PRN Reason: Pain (severe 7-10) Stop: 01/28/21 19:56 Ondansetron HCl (Ondansetron 4 Mg Tab.Dis) 4 mg PO Q4H PRN PRN Reason: nausea, able to take PO Lamotrigine [ Lamotrigine Er] 100 Mg Tab.Er.24 1 each PO DAILY [facility] Sodium Chloride (Sodium Chloride 0.9% 10 Ml Syringe) 10 ml FLUSH ASDIRECTED PRN PRN Reason: Keep Vein Open Sodium Chloride (Sodium Chloride 0.9% 2.5 Ml Syringe) 2.5 ml FLUSH ASDIRECTED PRN PRN Reason: Keep Vein Open Sodium Chloride (Sodium Chloride 0.9% 10 Ml Sdv) 10 ml IV ASDIRECTED PRN PRN Reason: IV Use Vancomycin HCl (Pharmacy To Dose - Vancomycin) 1 dose .XX ASDIRECTED BETSY Discontinued Medications Acetaminophen (Acetaminophen 500 Mg Tab) 1,000 mg PO ONETIME ONE Stop: 01/27/21 16:34 Last Admin: 01/27/21 16:42 Dose: 1,000 mg Documented by: Heparin Sodium (Porcine) (Heparin Sodium 5,000 Units/Ml Vial) 2,500 units IVPUSH .BOLUS ONE Stop: 01/28/21 03:31 Last Admin: 01/28/21 03:43 Dose: 2,500 units Documented by: Heparin Sodium (Porcine) (Heparin Sodium 5,000 Units/Ml Vial) 1,500 units IVPUSH .BOLUS ONE Stop: 01/28/21 09:18 Last Admin: 01/28/21 09:36 Dose: 1,500 units Documented by: Sodium Chloride (Normal Saline) 1,000 mls @ 999 mls/hr IV .Bolus ONE Stop: 01/27/21 17:06 Last Admin: 01/27/21 16:43 Dose: 999 mls/hr Documented by: Piperacillin Sod/Tazobactam (Sod 3.375 gm/ Sodium Chloride) 50 mls @ 100 mls/hr IV ONETIME ONE Stop: 01/27/21 16:42 Last Infusion: 01/27/21 17:34 Dose: Infused Documented by: Vancomycin HCl 1,500 mg/ (Sodium Chloride) 100 mls @ 100 mls/hr IV ONETIME ONE Stop: 01/27/21 17:12 Last Admin: 01/27/21 17:33 Dose: Not Given Documented by: Vancomycin HCl 1.5 gm/ Premix 300 mls @ 300 mls/hr IV ONETIME ONE Stop: 01/27/21 18:12 Last Admin: 01/27/21 17:33 Dose: 300 mls/hr Documented by: Azithromycin 500 mg/ Sodium (Chloride) 250 mls @ 250 mls/hr IV ONETIME BETSY Heparin Sodium/Sodium Chloride (Heparin 25,000 Units In 1/2 Ns 500 Ml) 500 mls @ 26.127 mls/hr IV TITRATE BETSY; Protocol Last Admin: 01/28/21 14:22 Dose: 24 units/kg/hr, 34.836 mls/hr Documented by: Azithromycin 500 mg/ Sodium (Chloride) 250 mls @ 250 mls/hr IV ONETIME STA Stop: 01/27/21 19:50 Last Admin: 01/27/21 19:36 Dose: 250 mls/hr Documented by: Heparin Sodium/Sodium Chloride (Heparin 25,000 Units In 1/2 Ns 500 Ml) Confirm Administered Dose 500 mls @ as directed .ROUTE .STK-MED ONE Stop: 01/27/21 19:01 Last Admin: 01/27/21 21:01 Dose: Not Given Documented by: Sodium Chloride (Normal Saline) 1,000 mls @ 999 mls/hr IV ASDIRECTED BETSY Sodium Chloride (Normal Saline) 1,000 mls @ 125 mls/hr IV ASDIRECTED BETSY Ceftriaxone Sodium/Dextrose 1 (gm/ Premix) 50 mls @ 100 mls/hr IV Q24H [facility] Last Admin: 01/28/21 11:11 Dose: 100 mls/hr Documented by: Iopamidol (Iopamidol 755 Mg/Ml 500 Ml Multipack Bottle) 100 ml IVPUSH ONETIME STA Stop: 01/27/21 17:50 Last Admin: 01/27/21 17:50 Dose: 100 ml Documented by: Iopamidol (Iopamidol 755 Mg/Ml 500 Ml Multipack Bottle) 100 ml IVPUSH ONETIME STA Stop: 01/28/21 15:55 Last Admin: 01/28/21 15:55 Dose: 100 ml Documented by: Ketorolac Tromethamine (Ketorolac 15 Mg/Ml Sdv) 15 mg IVPUSH STAT STA Stop: 01/27/21 18:53 Last Admin: 01/27/21 19:35 Dose: 15 mg Documented by: Lamotrigine (Lamotrigine 100 Mg Tab) 100 mg PO DAILY [facility] Last Admin: 01/28/21 09:36 Dose: 100 mg Documented by: Lamotrigine [ Lamotrigine Er] 100 Mg Tab.Er.24 1 each PO DAILY [facility] Last Admin: 01/28/21 15:28 Dose: Not Given Documented by: Sodium Chloride (Sodium Chloride 0.9% 10 Ml Syringe) 10 ml FLUSH ASDIRECTED PRN PRN Reason: Keep Vein Open Last Admin: 01/27/21 16:44 Dose: 10 ml Documented by: Sodium Chloride (Sodium Chloride 0.9% 2.5 Ml Syringe) 2.5 ml FLUSH ASDIRECTED PRN PRN Reason: Keep Vein Open Last Admin: 01/27/21 16:44 Dose: 2.5 ml Documented by: - Exam Quality Assessment: DVT Prophylaxis General: Alert, Oriented, Cooperative, No Acute Distress HEENT: Pupils Equal, Pupils Reactive, EOMI, Mucous Membr. Moist/No Name Neck: Supple Lungs: Clear to Auscultation, Normal Respiratory Effort Cardiovascular: Regular Rate, Regular Rhythm GI/Abdominal Exam: Normal Bowel Sounds, Soft, Tender Back Exam: Normal Inspection, Full Range of Motion Extremities: Normal Inspection, Normal Range of Motion, Non-Tender, No Pedal Edema, Normal Capillary Refill Peripheral Pulses: 2+: Carotid (L), Carotid (R), Dorsalis Pedis (L), Dorsalis Pedis (R) Skin: Warm, Dry, Intact Neurological: No New Focal Deficit Psy/Mental Status: Alert, Normal Affect, Normal Mood - Patient Data Lab Results Last 24 hrs: Laboratory Results - last 24 hr 01/27/21 01/27/21 01/27/21 Range/Units 16:45 16:45 16:45 WBC (4.0-11.0) K/uL RBC (4.50-5.90) M/uL Hgb (13.0-17.0) g/dL Hct (38.0-50.0) % MCV (80.0-98.0) fL MCH (27.0-32.0) pg MCHC (31.0-37.0) g/dL RDW Std Deviation (28.0-62.0) fl RDW Coeff of Willy (11.0-15.0) % Plt Count (150-400) K/uL MPV (7.40-12.00) fL Neut % (Auto) (48.0-80.0) % Lymph % (Auto) (16.0-40.0) % Arthur % (Auto) (0.0-15.0) % Eos % (Auto) (0.0-7.0) % Baso % (Auto) (0.0-1.5) % Neut # (Auto) (1.4-5.7) K/uL Lymph # (Auto) (0.6-2.4) K/uL Arthur # (Auto) (0.0-0.8) K/uL Eos # (Auto) (0.0-0.7) K/uL Baso # (Auto) (0.0-0.1) K/uL Nucleated RBC % /100WBC Nucleated RBCs # K/uL INR 1.09 APTT 27.3 (18.6-31.3) SEC Sodium 129 L (136-148) mmol/L Potassium 3.9 (3.5-5.1) mmol/L Chloride 94 L (98-107) mmol/L Carbon Dioxide 25.7 (21.0-32.0) mmol/L BUN 12 (7.0-18.0) mg/dL Creatinine 1.1 (0.8-1.3) mg/dL Est Cr Clr Drug Dosing 97.13 mL/min Estimated GFR (MDRD) > 60.0 ml/min Glucose 129 H (74-106) mg/dL Lactic Acid 1.6 (0.4-2.0) mmol/L Calcium 8.2 L (8.5-10.1) mg/dL Magnesium 2.2 (1.8-2.4) mg/dL Total Bilirubin 0.9 (0.2-1.0) mg/dL AST 139 H (15-37) IU/L ALT 215 H (14-63) IU/L Alkaline Phosphatase 293 H (46-116) U/L Troponin I < 0.050 (0.000-0.056) ng/mL C-Reactive Protein 15.90 H (0.00-0.90) mg/dL Total Protein 7.2 (6.4-8.2) g/dL Albumin 2.5 L (3.4-5.0) g/dL Globulin 4.7 H (2.6-4.0) g/dL Albumin/Globulin Ratio 0.5 L (0.9-1.6) Lipase 167 (73-393) U/L Urine Color Urine Appearance Urine pH (5.0-8.0) Ur Specific Round O (1.001-1.035) Urine Protein (NEGATIVE) mg/dL Urine Glucose (UA) (NEGATIVE) mg/dL Urine Ketones (NEGATIVE) mg/dL Urine Occult Blood (NEGATIVE) Urine Nitrite (NEGATIVE) Urine Bilirubin (NEGATIVE) Urine Urobilinogen (<2.0) EU/dL Ur Leukocyte Esterase (NEGATIVE) Urine RBC (0-2/HPF) Urine WBC (0-5/HPF) Ur Epithelial Cells (NONE-FEW) Amorphous Sediment (NEGATIVE) Urine Bacteria (NEGATIVE) Urine Mucus (NONE-MOD) Influenza Type A RNA (NEGATIVE) Influenza Type B RNA (NEGATIVE) SARS-CoV-2 RNA (HELENA) (NEGATIVE) 01/27/21 01/27/21 01/27/21 Range/Units 17:26 19:23 20:11 WBC (4.0-11.0) K/uL RBC (4.50-5.90) M/uL Hgb (13.0-17.0) g/dL Hct (38.0-50.0) % MCV (80.0-98.0) fL MCH (27.0-32.0) pg MCHC (31.0-37.0) g/dL RDW Std Deviation (28.0-62.0) fl RDW Coeff of Willy (11.0-15.0) % Plt Count (150-400) K/uL MPV (7.40-12.00) fL Neut % (Auto) (48.0-80.0) % Lymph % (Auto) (16.0-40.0) % Arthur % (Auto) (0.0-15.0) % Eos % (Auto) (0.0-7.0) % Baso % (Auto) (0.0-1.5) % Neut # (Auto) (1.4-5.7) K/uL Lymph # (Auto) (0.6-2.4) K/uL Arthur # (Auto) (0.0-0.8) K/uL Eos # (Auto) (0.0-0.7) K/uL Baso # (Auto) (0.0-0.1) K/uL Nucleated RBC % /100WBC Nucleated RBCs # K/uL INR APTT 27.6 (18.6-31.3) SEC Sodium (136-148) mmol/L Potassium (3.5-5.1) mmol/L Chloride (98-107) mmol/L Carbon Dioxide (21.0-32.0) mmol/L BUN (7.0-18.0) mg/dL Creatinine (0.8-1.3) mg/dL Est Cr Clr Drug Dosing mL/min Estimated GFR (MDRD) ml/min Glucose (74-106) mg/dL Lactic Acid (0.4-2.0) mmol/L Calcium (8.5-10.1) mg/dL Magnesium (1.8-2.4) mg/dL Total Bilirubin (0.2-1.0) mg/dL AST (15-37) IU/L ALT (14-63) IU/L Alkaline Phosphatase (46-116) U/L Troponin I (0.000-0.056) ng/mL C-Reactive Protein (0.00-0.90) mg/dL Total Protein (6.4-8.2) g/dL Albumin (3.4-5.0) g/dL Globulin (2.6-4.0) g/dL Albumin/Globulin Ratio (0.9-1.6) Lipase (73-393) U/L Urine Color YELLOW Urine Appearance CLEAR Urine pH 7.5 (5.0-8.0) Ur Specific Round [place] 1.015 (1.001-1.035) Urine Protein TRACE H (NEGATIVE) mg/dL Urine Glucose (UA) NEGATIVE (NEGATIVE) mg/dL Urine Ketones NEGATIVE (NEGATIVE) mg/dL Urine Occult Blood TRACE-INTACT H (NEGATIVE) Urine Nitrite NEGATIVE (NEGATIVE) Urine Bilirubin NEGATIVE (NEGATIVE) Urine Urobilinogen 4.0 H (<2.0) EU/dL Ur Leukocyte Esterase NEGATIVE (NEGATIVE) Urine RBC 2-3 (0-2/HPF) Urine WBC 0-1 (0-5/HPF) Ur Epithelial Cells NOT SEEN (NONE-FEW) Amorphous Sediment RARE (NEGATIVE) Urine Bacteria RARE (NEGATIVE) Urine Mucus RARE (NONE-MOD) Influenza Type A RNA NEGATIVE (NEGATIVE) Influenza Type B RNA NEGATIVE (NEGATIVE) SARS-CoV-2 RNA (HELENA) NEGATIVE (NEGATIVE) 01/27/21 01/28/21 01/28/21 Range/Units 22:50 02:30 02:30 WBC 14.58 H (4.0-11.0) K/uL RBC 3.85 L (4.50-5.90) M/uL Hgb 11.2 L (13.0-17.0) g/dL Hct 33.2 L (38.0-50.0) % MCV 86.2 (80.0-98.0) fL MCH 29.1 (27.0-32.0) pg MCHC 33.7 (31.0-37.0) g/dL RDW Std Deviation 43.5 (28.0-62.0) fl RDW Coeff of Willy 14 (11.0-15.0) % Plt Count 276 (150-400) K/uL MPV 10.00 (7.40-12.00) fL Neut % (Auto) 83.4 H (48.0-80.0) % Lymph % (Auto) 6.9 L (16.0-40.0) % Arthur % (Auto) 9.2 (0.0-15.0) % Eos % (Auto) 0.4 (0.0-7.0) % Baso % (Auto) 0.1 (0.0-1.5) % Neut # (Auto) 12.2 H (1.4-5.7) K/uL Lymph # (Auto) 1.0 (0.6-2.4) K/uL Arthur # (Auto) 1.3 H (0.0-0.8) K/uL Eos # (Auto) 0.1 (0.0-0.7) K/uL Baso # (Auto) 0.0 (0.0-0.1) K/uL Nucleated RBC % 0.0 /100WBC Nucleated RBCs # 0 K/uL INR APTT 31.1 (18.6-31.3) SEC Sodium 138 (136-148) mmol/L Potassium (3.5-5.1) mmol/L Chloride (98-107) mmol/L Carbon Dioxide (21.0-32.0) mmol/L BUN (7.0-18.0) mg/dL Creatinine (0.8-1.3) mg/dL Est Cr Clr Drug Dosing mL/min Estimated GFR (MDRD) ml/min Glucose (74-106) mg/dL Lactic Acid (0.4-2.0) mmol/L Calcium (8.5-10.1) mg/dL Magnesium (1.8-2.4) mg/dL Total Bilirubin (0.2-1.0) mg/dL AST (15-37) IU/L ALT (14-63) IU/L Alkaline Phosphatase (46-116) U/L Troponin I (0.000-0.056) ng/mL C-Reactive Protein (0.00-0.90) mg/dL Total Protein (6.4-8.2) g/dL Albumin (3.4-5.0) g/dL Globulin (2.6-4.0) g/dL Albumin/Globulin Ratio (0.9-1.6) Lipase (73-393) U/L Urine Color Urine Appearance Urine pH (5.0-8.0) Ur Specific Round O (1.001-1.035) Urine Protein (NEGATIVE) mg/dL Urine Glucose (UA) (NEGATIVE) mg/dL Urine Ketones (NEGATIVE) mg/dL Urine Occult Blood (NEGATIVE) Urine Nitrite (NEGATIVE) Urine Bilirubin (NEGATIVE) Urine Urobilinogen (<2.0) EU/dL Ur Leukocyte Esterase (NEGATIVE) Urine RBC (0-2/HPF) Urine WBC (0-5/HPF) Ur Epithelial Cells (NONE-FEW) Amorphous Sediment (NEGATIVE) Urine Bacteria (NEGATIVE) Urine Mucus (NONE-MOD) Influenza Type A RNA (NEGATIVE) Influenza Type B RNA (NEGATIVE) SARS-CoV-2 RNA ([facility]) (NEGATIVE) 0601/28/21 01/28/21 Range/Units 02:30 02:30 08:10 WBC (4.0-11.0) K/uL RBC (4.50-5.90) M/uL Hgb (13.0-17.0) g/dL Hct (38.0-50.0) % MCV (80.0-98.0) fL MCH (27.0-32.0) pg MCHC (31.0-37.0) g/dL RDW Std Deviation (28.0-62.0) fl RDW Coeff of Willy (11.0-15.0) % Plt Count (150-400) K/uL MPV (7.40-12.00) fL Neut % (Auto) (48.0-80.0) % Lymph % (Auto) (16.0-40.0) % Arthur % (Auto) (0.0-15.0) % Eos % (Auto) (0.0-7.0) % Baso % (Auto) (0.0-1.5) % Neut # (Auto) (1.4-5.7) K/uL Lymph # (Auto) (0.6-2.4) K/uL Arthur # (Auto) (0.0-0.8) K/uL Eos # (Auto) (0.0-0.7) K/uL Baso # (Auto) (0.0-0.1) K/uL Nucleated RBC % /100WBC Nucleated RBCs # K/uL INR APTT 40.9 H (18.6-31.3) SEC Sodium 135 L (136-148) mmol/L Potassium 4.2 (3.5-5.1) mmol/L Chloride 99 (98-107) mmol/L Carbon Dioxide 25.3 (21.0-32.0) mmol/L BUN 13 (7.0-18.0) mg/dL Creatinine 0.9 (0.8-1.3) mg/dL Est Cr Clr Drug Dosing 115.75 mL/min Estimated GFR (MDRD) > 60.0 ml/min Glucose 116 H (74-106) mg/dL Lactic Acid 0.9 (0.4-2.0) mmol/L Calcium 7.9 L (8.5-10.1) mg/dL Magnesium (1.8-2.4) mg/dL Total Bilirubin 1.0 (0.2-1.0) mg/dL AST 88 H (15-37) IU/L ALT 166 H (14-63) IU/L Alkaline Phosphatase 253 H (46-116) U/L Troponin I (0.000-0.056) ng/mL C-Reactive Protein (0.00-0.90) mg/dL Total Protein 6.3 L (6.4-8.2) g/dL Albumin 2.1 L (3.4-5.0) g/dL Globulin 4.2 H (2.6-4.0) g/dL Albumin/Globulin Ratio 0.5 L (0.9-1.6) Lipase (73-393) U/L Urine Color Urine Appearance Urine pH (5.0-8.0) Ur Specific Round O (1.001-1.035) Urine Protein (NEGATIVE) mg/dL Urine Glucose (UA) (NEGATIVE) mg/dL Urine Ketones (NEGATIVE) mg/dL Urine Occult Blood (NEGATIVE) Urine Nitrite (NEGATIVE) Urine Bilirubin (NEGATIVE) Urine Urobilinogen (<2.0) EU/dL Ur Leukocyte Esterase (NEGATIVE) Urine RBC (0-2/HPF) Urine WBC (0-5/HPF) Ur Epithelial Cells (NONE-FEW) Amorphous Sediment (NEGATIVE) Urine Bacteria (NEGATIVE) Urine Mucus (NONE-MOD) Influenza Type A RNA (NEGATIVE) Influenza Type B RNA (NEGATIVE) SARS-CoV-2 RNA (HELE[place]) (NEGATIVE) Result Diagrams: 01/28/21 02:30 01/28/21 02:30 Kristofer Results Last 24 hrs: Microbiology 01/28/21 15:14 Anaerobic Blood Culture - Final Blood - Venous 01/27/21 16:13 Aerobic Blood Culture - Preliminary Blood - Venous Anaerobic Blood Culture - Preliminary 01/27/21 16:45 Aerobic Blood Culture - Preliminary Blood - Venous - Lab Draw Anaerobic Blood Culture - Preliminary Sepsis Event Note - Evaluation Sepsis Screening Result: No Definite Risk - Focused Exam Vital Signs: Vital Signs Temp Pulse Resp BP Pulse Ox 01/28/21 16:00 98.4 F 99 20 132/62 96 01/28/21 12:00 97.4 F 85 20 115/72 96 01/28/21 08:25 96.8 F L 72 20 118/68 97 01/28/21 05:50 97.4 F 77 - Problem List & Annotations (1) Pulmonary infarct SNOMED Code(s): 33284330 Code(s): I26.99 - OTHER PULMONARY EMBOLISM WITHOUT ACUTE COR PULMONALE Status: Acute Current Visit: Yes (2) Pulmonary infection SNOMED Code(s): 024716555 Code(s): J18.9 - PNEUMONIA, UNSPECIFIED ORGANISM Status: Acute Current Visit: Yes - Problem List Review Problem List Initiated/Reviewed/Updated: Yes - My Orders Last 24 Hours: My Active Orders 01/27/21 19:50 Communication Order [RC] PRN Oxygen Therapy [RC] PRN Up ad Yvonne [RC] ASDIRECTED VTE/DVT Education [RC] PER UNIT ROUTINE Vital Signs [RC] Q4H Acetaminophen [TylenoL] 650 mg PO Q4H PRN Morphine 2 mg IVPUSH Q2H PRN Ondansetron [Zofran ODT] 4 mg PO Q4H PRN Sodium Chloride 0.9% [Normal Saline] 10 ml IV ASDIRECTED PRN Sodium Chloride 0.9% [Saline Flush] 10 ml FLUSH ASDIRECTED PRN Sodium Chloride 0.9% [Saline Flush] 2.5 ml FLUSH ASDIRECTED PRN Peripheral IV Insertion Adult [OM.PC] Routine 01/27/21 19:51 Pulse Oximetry [RC] CONTINUOUS Telemetry Monitoring [Cardiac Monitoring] [RC] Q8H 01/27/21 19:54 Sequential Compression Device [OM.PC] Per Unit Routine 01/27/21 19:58 Antiembolic Devices [RC] PER UNIT ROUTINE 01/27/21 20:45 Pantoprazole [ProTONIX IV] 40 mg Sodium Chloride 0.9% [Normal Saline] 10 ml IV Q24H 01/28/21 12:04 Resuscitation Status Routine 01/29/21 09:00 Patient's Own Medication [Ptom] 1 each PO DAILY - Plan Plan:: 35-year-old male previously healthy with history of depression on lamotrigine. Admitted for possible pulmonary infarct versus infection was started on full dose heparin and broad-spectrum antibiotics. 1. Possible pulmonary infarct: Covid test was negative Patient was febrile and tachycardic overnight. Remained normotensive, with unremarkable chest examination, however patient presents with shortness of breath, pleuritic chest pain. Therefore will undergo CT angio today to rule out possibility of PE. Patient was started on full dose heparin, may consider stopping if CT angio confirms negative findings for PE. 2. Sepsis secondary to possible pulmonary infection with history of drug abuse: Febrile overnight with temperature of 100.8, tachycardia 109; Normal lactate of 0.9, gram-positive patient started on antibiotics as per vitals and CT findings discussed above. Will narrow antibiotics based on cultures. 3. Hyponatremia secondary to dehydration: Resolved, Continue to monitor. 4. Transaminitis: Improved AST 88, ALT 166; continue to monitor 5. Past medical history of depression, anxiety and bipolar disorder: Continue home dose of lamotrigine 100 mg daily. CODE STATUS: DNR/DNI Diet: Regular Activity: Up ad yvonne. DVT prophylaxis: Receiving full dose heparin and SCDs GI prophylaxis: Pantoprazole 40
[2021-01-28] MEDS ORDERED: Enoxaparin 40 MG/0.4 ML Syringe SUBCUT SCH (18:00)
[2021-01-28] MEDS ORDERED: Azithromycin 500 MG in Sodium Chloride 0.9% 250 ML IV SCH (19:00)
[2021-01-29] MEDS: Piperacillin/Tazobactam 4.5 GM in Sodium Chloride 0.9% 100 ML IV SCH ×3 (03:45→15:03)
[2021-01-29] MEDS: Acetaminophen 325 MG Tab PO PRN (03:49)
[2021-01-29 06:18] LABS: BLOOD UREA NITROGEN,BUN 11 mg/dL (7.0-18.0); CARBON DIOXIDE,CO2 25.5 mmol/L (21.0-32.0); CHLORIDE,CL 100 mmol/L (98-107); GLUCOSE RANDOM 126 mg/dL (74-106); POTASSIUM,K 3.7 mmol/L (3.5-5.1); SODIUM,NA 133 mmol/L (136-148)
[2021-01-29] MEDS ORDERED: LAMOTRIGINE 100 MG PO SCH (09:00)
[2021-01-29 13:41] VITALS: BP 122/65; PULSE 84
--- NOTE | 2021-01-29 13:42 | PCM.DCSUM1 ---
Discharge Summary - Hospital Course Brief History: Patient is a 35-year-old gentleman with no significant past medical history except for anxiety and depression. Presented with fevers, diarrhea, flank pain since last t 3 days was thoroughly worked up in the ED for sepsis as he presented with fever and tachycardia. Patient also complained of chest and right flank pain noted to be 8 out of 10 on the pain scale, has tried using ibuprofen and Tylenol. Flulike symptoms have improved.has associated fever, chills, shortness of breath and palpitations. CT Abdo pelvis demonstrated wedgelike area in the right lower lung lobe possible infarct versus infection, suggested CT. Patient was started on full dose heparin will undergo CT angio in the morning to evaluate for PE. - Discharge Data Discharge Date: 01/29/21 Discharge Disposition: DC/Tfer to Acute Hospital 02 Condition: Good - Referral to [facility] Primary Care Physician: Amando Maldonado MD - Discharge Diagnosis/Problem(s) (1) Infective endocarditis SNOMED Code(s): 457113085 ICD Code: I33.0 - ACUTE AND SUBACUTE INFECTIVE ENDOCARDITIS Status: Acute Current Visit: Yes Qualifiers: Infective endocarditis organism: bacterial Chronicity: acute Qualified Code(s): I33.0 - Acute and subacute infective endocarditis - Patient Summary/Data Hospital Course: Admission diagnoses Possible pulmonary infarction Possible pulmonary infection Sepsis Discharge diagnoses Acute right-sided infective endocarditis Paddy was admitted secondary to sepsis related to possible pulmonary infection. Patient treated with broad-spectrum antibiotics including Zosyn and vancomycin along with azithromycin. CT of the abdomen showed possible wedge-shaped pulmonary infarction and he was started on heparin drip for possible pulmonary embolism. CT angio was able to be completed the following day which showed several septic emboli within the lungs, PE ruled out. Echo, transthoracic, was obtained on 01/29/2021 due to septic emboli noted within the lungs. Today transthoracic echo returns with vegetation noted on the tricuspid valve. During his stay blood cultures from admission returned positive and have now showed MSSA. Repeat blood cultures on 01/28/2021 continue to be positive 4 out of 4 bottles, continue to show gram-positive cocci in clusters. I spoke with Dr. Melchor, infectious disease doctor in [facility]. He recommended patient transferred acutely for further evaluation by cardiology and infectious disease in person. I spoke with Faizan and his father at bedside they are in agreement to treatment plan. Patient will be transferred via EMS to [facility]. Dr. Melchor is excepting physician and patient will be transferred to the ER and they are aware via dispatch, [facility]. All questions and concerns addressed within our facility as possible. Patient to be transferred today. - Patient Instructions Diet: Regular Diet as Tolerated Activity: As Tolerated - Discharge Plan *PRESCRIPTION DRUG MONITORING PROGRAM REVIEWED*: Not Applicable *COPY OF PRESCRIPTION DRUG MONITORING REPORT IN PATIENT JORGE LUIS: Not Applicable Home Medications: Home Meds lamoTRIgine [Lamotrigine ER] 100 mg PO DAILY 01/28/21 [History] Azithromycin [Zithromax] 500 mg IV Q24H vial 01/29/21 [Rx] Piperacillin/Tazobactam [Piperacil-Tazobact] 4.5 gm IV Q6H adv 01/29/21 [Rx] Vancomycin 1.25 gm IV Q8H sdv 01/29/21 [Rx] Forms: ED Department Discharge Referrals: Amando Maldonado MD [Primary Care Provider] - - Discharge Summary/Plan Comment DC Time >30 min.: No - Patient Data Vitals - Most Recent: Last Vital Signs Temp 98.7 F 01/29/21 08:00 Pulse 89 01/29/21 08:00 Resp 16 01/29/21 08:00 BP 122/63 01/29/21 08:00 Pulse Ox 95 01/29/21 08:00 Weight - Most Recent: 70.76 kg I&O - Last 24 hours: Intake & Output 01/28/21 01/29/21 01/29/21 22:59 06:59 14:59 Intake Total 2480 Balance 2480 Lab Results - Last 24 hrs: Laboratory Results - last 24 hr 01/28/21 01/29/21 01/29/21 Range/Units 19:23 05:20 05:20 WBC 14.71 H (4.0-11.0) K/uL RBC 3.77 L (4.50-5.90) M/uL Hgb 10.9 L (13.0-17.0) g/dL Hct 32.6 L (38.0-50.0) % MCV 86.5 (80.0-98.0) fL MCH 28.9 (27.0-32.0) pg MCHC 33.4 (31.0-37.0) g/dL RDW Std Deviation 44.5 (28.0-62.0) fl RDW Coeff of Willy 14 (11.0-15.0) % Plt Count 392 (150-400) K/uL MPV 10.20 (7.40-12.00) fL Neut % (Auto) 83.7 H (48.0-80.0) % Lymph % (Auto) 6.6 L (16.0-40.0) % [place] % (Auto) 8.9 (0.0-15.0) % Eos % (Auto) 0.6 (0.0-7.0) % Baso % (Auto) 0.2 (0.0-1.5) % Neut # (Auto) 12.3 H (1.4-5.7) K/uL Lymph # (Auto) 1.0 (0.6-2.4) K/uL [place] # (Auto) 1.3 H (0.0-0.8) K/uL Eos # (Auto) 0.1 (0.0-0.7) K/uL Baso # (Auto) 0.0 (0.0-0.1) K/uL Nucleated RBC % 0.0 /100WBC Nucleated RBCs # 0 K/uL Sodium 133 L (136-148) mmol/L Potassium 3.7 (3.5-5.1) mmol/L Chloride 100 (98-107) mmol/L Carbon Dioxide 25.5 (21.0-32.0) mmol/L BUN 11 (7.0-18.0) mg/dL Creatinine 0.9 (0.8-1.3) mg/dL Est Cr Clr Drug Dosing 115.75 mL/min Estimated GFR (MDRD) > 60.0 ml/min Glucose 126 H (74-106) mg/dL Calcium 7.7 L (8.5-10.1) mg/dL Magnesium 2.1 (1.8-2.4) mg/dL Total Bilirubin 0.6 (0.2-1.0) mg/dL AST 47 H (15-37) IU/L ALT 120 H (14-63) IU/L Alkaline Phosphatase 240 H (46-116) U/L Total Protein 6.2 L (6.4-8.2) g/dL Albumin 2.0 L (3.4-5.0) g/dL Globulin 4.2 H (2.6-4.0) g/dL Albumin/Globulin Ratio 0.5 L (0.9-1.6) Vancomycin Trough 8.2 (5.0-10.0) ug/mL ALVERTO Results - Last 24 hrs: Microbiology 01/27/21 16:45 Aerobic Blood Culture - Final Blood - Venous - Lab Draw Anaerobic Blood Culture - Final 01/27/21 16:13 Aerobic Blood Culture - Final Blood - Venous Staphylococcus Aureus Anaerobic Blood Culture - Final 01/28/21 15:25 Aerobic Blood Culture - Preliminary Blood - Venous - Lab Draw 01/28/21 15:14 Anaerobic Blood Culture - Final Blood - Venous Med Orders - Current: Current Medications Acetaminophen (Acetaminophen 325 Mg Tab) 650 mg PO Q4H PRN PRN Reason: Pain (Mild 1-3)/fever Last Admin: 01/29/21 03:49 Dose: 325 mg Documented by: Enoxaparin Sodium (Enoxaparin 40 Mg/0.4 Ml Syringe) 40 mg SUBCUT Q24H [facility] Last Admin: 01/28/21 18:17 Dose: 40 mg Documented by: Pantoprazole Sodium 40 mg/ (Sodium Chloride) 10 mls @ 300 mls/hr IV Q24H [facility] Last Admin: 01/28/21 20:06 Dose: 300 mls/hr Documented by: Azithromycin 500 mg/ Sodium (Chloride) 250 mls @ 250 mls/hr IV Q24H [facility] Last Admin: 01/28/21 18:18 Dose: 250 mls/hr Documented by: Piperacillin Sod/Tazobactam (Sod 4.5 gm/ Sodium Chloride) 100 mls @ 100 mls/hr IV Q6H [facility] Last Admin: 01/29/21 09:29 Dose: 100 mls/hr Documented by: Vancomycin HCl 1.25 gm/ Sodium (Chloride) 250 mls @ 166.667 mls/hr IV Q8H [facility] Last Admin: 01/29/21 13:08 Dose: 166.667 mls/hr Documented by: Ondansetron HCl (Ondansetron 4 Mg Tab.Dis) 4 mg PO Q4H PRN PRN Reason: nausea, able to take PO Lamotrigine [ Lamotrigine Er] 100 Mg Tab.Er.24 1 each PO DAILY [facility] Last Admin: 01/29/21 09:34 Dose: Not Given Documented by: Sodium Chloride (Sodium Chloride 0.9% 10 Ml Syringe) 10 ml FLUSH ASDIRECTED PRN PRN Reason: Keep Vein Open Sodium Chloride (Sodium Chloride 0.9% 2.5 Ml Syringe) 2.5 ml FLUSH ASDIRECTED PRN PRN Reason: Keep Vein Open Sodium Chloride (Sodium Chloride 0.9% 10 Ml Sdv) 10 ml IV ASDIRECTED PRN PRN Reason: IV Use Vancomycin HCl (Pharmacy To Dose - Vancomycin) 1 dose .XX ASDIRECTED BETSY Discontinued Medications Acetaminophen (Acetaminophen 500 Mg Tab) 1,000 mg PO ONETIME ONE Stop: 01/27/21 16:34 Last Admin: 01/27/21 16:42 Dose: 1,000 mg Documented by: Heparin Sodium (Porcine) (Heparin Sodium 5,000 Units/Ml Vial) 2,500 units IVPUSH .BOLUS ONE Stop: 01/28/21 03:31 Last Admin: 01/28/21 03:43 Dose: 2,500 units Documented by: Heparin Sodium (Porcine) (Heparin Sodium 5,000 Units/Ml Vial) 1,500 units IVPUSH .BOLUS ONE Stop: 01/28/21 09:18 Last Admin: 01/28/21 09:36 Dose: 1,500 units Documented by: Sodium Chloride (Normal Saline) 1,000 mls @ 999 mls/hr IV .Bolus ONE Stop: 01/27/21 17:06 Last Admin: 01/27/21 16:43 Dose: 999 mls/hr Documented by: Piperacillin Sod/Tazobactam (Sod 3.375 gm/ Sodium Chloride) 50 mls @ 100 mls/hr IV ONETIME ONE Stop: 01/27/21 16:42 Last Infusion: 01/27/21 17:34 Dose: Infused Documented by: Vancomycin HCl 1,500 mg/ (Sodium Chloride) 100 mls @ 100 mls/hr IV ONETIME ONE Stop: 01/27/21 17:12 Last Admin: 01/27/21 17:33 Dose: Not Given Documented by: Vancomycin HCl 1.5 gm/ Premix 300 mls @ 300 mls/hr IV ONETIME ONE Stop: 01/27/21 18:12 Last Admin: 05/31/21 17:33 Dose: 300 mls/hr Documented by: Azithromycin 500 mg/ Sodium (Chloride) 250 mls @ 250 mls/hr IV ONETIME BETSY Heparin Sodium/Sodium Chloride (Heparin 25,000 Units In 1/2 Ns 500 Ml) 500 mls @ 26.127 mls/hr IV TITRATE BETSY; Protocol Last Admin: 01/28/21 14:22 Dose: 24 units/kg/hr, 34.836 mls/hr Documented by: Azithromycin 500 mg/ Sodium (Chloride) 250 mls @ 250 mls/hr IV ONETIME STA Stop: 01/27/21 19:50 Last Admin: 01/27/21 19:36 Dose: 250 mls/hr Documented by: Heparin Sodium/Sodium Chloride (Heparin 25,000 Units In 1/2 Ns 500 Ml) Confirm Administered Dose 500 mls @ as directed .ROUTE .STK-MED ONE Stop: 01/27/21 19:01 Last Admin: 01/27/21 21:01 Dose: Not Given Documented by: Sodium Chloride (Normal Saline) 1,000 mls @ 999 mls/hr IV ASDIRECTED BETSY Sodium Chloride (Normal Saline) 1,000 mls @ 125 mls/hr IV ASDIRECTED BETSY Vancomycin HCl 1 gm/ Sodium (Chloride) 250 mls @ 166 mls/hr IV Q8H [facility] Last Admin: 01/28/21 23:22 Dose: Not Given Documented by: Ceftriaxone Sodium/Dextrose 1 (gm/ Premix) 50 mls @ 100 mls/hr IV Q24H [facility] Last Admin: 01/28/21 11:11 Dose: 100 mls/hr Documented by: Vancomycin HCl 1.25 gm/ Sodium (Chloride) 250 mls @ 166.667 mls/hr IV Q12H [facility] Iopamidol (Iopamidol 755 Mg/Ml 500 Ml Multipack Bottle) 100 ml IVPUSH ONETIME STA Stop: 01/27/21 17:50 Last Admin: 01/27/21 17:50 Dose: 100 ml Documented by: Iopamidol (Iopamidol 755 Mg/Ml 500 Ml Multipack Bottle) 100 ml IVPUSH ONETIME STA Stop: 01/28/21 15:55 Last Admin: 01/28/21 15:55 Dose: 100 ml Documented by: Ketorolac Tromethamine (Ketorolac 15 Mg/Ml Sdv) 15 mg IVPUSH STAT STA Stop: 01/27/21 18:53 Last Admin: 01/27/21 19:35 Dose: 15 mg Documented by: Lamotrigine (Lamotrigine 100 Mg Tab) 100 mg PO DAILY [facility] Last Admin: 01/28/21 09:36 Dose: 100 mg Documented by: Morphine Sulfate (Morphine 10 Mg/Ml Syringe) 2 mg IVPUSH Q2H PRN PRN Reason: Pain (severe 7-10) Stop: 01/28/21 19:56 Lamotrigine [ Lamotrigine Er] 100 Mg Tab.Er.24 1 each PO DAILY [facility] Last Admin: 01/28/21 15:28 Dose: Not Given Documented by: Sodium Chloride (Sodium Chloride 0.9% 10 Ml Syringe) 10 ml FLUSH ASDIRECTED PRN PRN Reason: Keep Vein Open Last Admin: 01/27/21 16:44 Dose: 10 ml Documented by: Sodium Chloride (Sodium Chloride 0.9% 2.5 Ml Syringe) 2.5 ml FLUSH ASDIRECTED PRN PRN Reason: Keep Vein Open Last Admin: 01/27/21 16:44 Dose: 2.5 ml Documented by: - Exam General: Reports: Alert, Oriented, Cooperative Neck: Reports: Supple Lungs: Reports: Clear to Auscultation, Normal Respiratory Effort Cardiovascular: Reports: Regular Rate, Regular Rhythm, No Murmurs GI/Abdominal Exam: Normal Bowel Sounds, Soft, Non-Tender Neurological: Reports: No New Focal Deficit Psy/Mental Status: Reports: Alert, Normal Affect, Normal Mood
[2021-01-29] MEDS ORDERED: oxyCODONE 5 MG/5 ML Cup PO ONE (15:40)
[2021-01-29] MEDS ORDERED: oxyCODONE 5 MG Tab ONE (15:46)
--- NOTE | 2021-01-30 16:23 | ECHO ---
EXAM DATE: 01/27/21 PATIENT'S AGE: 35 The ECHO report has been scanned into [employer] and can be seen in this patient's EMR (Electronic Medical Record) under the REPORTS section. The report has also been scanned into PACS. FREDERIC
== END 2021-01-29 15:55 | DRG 720 ==
LOC: MW.ED 15:44 → MW.MS 18:35
PROVIDERS: ADMIT Internal Medicine; ATTEND Internal Medicine
DX: A41.01 Sepsis due to Methicillin susceptible Staphylococcus aureus (principal); I33.0 Acute and subacute infective endocarditis; F41.9 Anxiety disorder, unspecified; I76 Septic arterial embolism; F31.9 Bipolar disorder, unspecified; Z66 Do not resuscitate; E87.1 Hypo-osmolality and hyponatremia; R74.8 Abnormal levels of other serum enzymes; J18.9 Pneumonia, unspecified organism; E86.0 Dehydration; Z79.899 Other long term (current) drug therapy; Z87.891 Personal history of nicotine dependence; Z20.822 Contact with and (suspected) exposure to COVID-19
CPT/HCPCS: 0240U; 36415; 71045; 71045-26; 71275; 71275-26; 74177; 74177-26; 80053; 80202; 81001; 83605; 83690; 83735; 84295; 84484; 85025; 85610; 85730; 86140; 87040; 87186; 93005; 93306; A9270-GY; C9113; J0456; J0696; J1644; J1650; J1885; J2543; J3370; J7030; J7050; Q9967

== ENCOUNTER 2023-10-06 13:34 | Emergency (ER) | payer SELFPAY ==
[2023-10-06 14:27] VITALS: BP 124/86; PULSE 110
== END 2023-10-06 14:28 ==
LOC: MW.ED 13:34
DX: L03.113 Cellulitis of right upper limb (principal); L03.114 Cellulitis of left upper limb
CPT/HCPCS: 99283

== ENCOUNTER 2023-10-22 12:22 | Emergency (ER) | payer SELFPAY | END 2023-10-22 13:15 | disposition left against medical advice (07) | LOC: MW.ED 12:22 | DX: Z53.21 Procedure and treatment not carried out due to patient leaving prior to being seen by health care provider (principal) ==

== ENCOUNTER 2023-10-25 18:37 | Emergency (ER) | payer SELFPAY ==
[2023-10-25] MEDS: Sodium Chloride 0.9% 1,000 ML IV ONE (19:46)
[2023-10-25 20:16] LABS: BASOPHILS ABSOLUTE AUTO 0.06 K/uL (0.00-0.20); BASOPHILS PERCENT AUTO 0.6 % (0.0-1.0); EOSINOPHILS ABSOLUTE AUTO 0.34 K/uL (0.00-0.45); EOSINOPHILS PERCENT AUTO 3.4 % (0.0-6.0); HEMATOCRIT 48.4 % (42.0-52.0); HEMOGLOBIN 16.3 g/dL (14.0-18.0); IMMATURE GRAN ABSOLUTE AUTO 0.04 K/uL (0.00-0.05); IMMATURE GRAN PERCENT AUTO 0.4 % (0.0-0.4); LYMPHOCYTES ABSOLUTE AUTO 1.89 K/uL (1.00-4.80); LYMPHOCYTES PERCENT AUTO 18.9 % (24.0-44.0); MEAN CORPUSCULAR HGB CONC 33.7 g/dL (32.0-36.0); MEAN PLATELET VOLUME 9.3 fL (9.4-12.4); MONOCYTES ABSOLUTE AUTO 0.91 K/uL (0.00-0.80); MONOCYTES PERCENT AUTO 9.1 % (0.0-8.0); NEUTROPHILS ABSOLUTE AUTO 6.76 K/uL (1.80-7.70); NEUTROPHILS PERCENT AUTO 67.6 % (41.0-71.0); PLATELET COUNT,PLT 294 K/uL (150-400); RED BLOOD CELL COUNT 5.63 M/uL (4.52-5.90)
[2023-10-25 20:41] LABS: A/G RATIO 0.8 (0.9-1.6); ALBUMIN 3.8 g/dL (3.4-5.0); BILIRUBIN TOTAL 0.3 mg/dL (0.2-1.0); CALCIUM 9.1 mg/dL (8.5-10.1); CARBON DIOXIDE,CO2 29.8 mmol/L (21.0-32.0); CREATININE 1.2 mg/dL (0.8-1.3); EST CRCL DRUG DOSING (CG) 87.03 mL/min; POTASSIUM,K 3.9 mmol/L (3.5-5.1); PROTEIN TOTAL,TP 8.6 g/dL (6.4-8.2)
[2023-10-25 21:53] VITALS: BP 113/61; PULSE 93
[2023-10-25] MEDS: Clindamycin HCl 150 MG Cap PO STA (23:00)
== END 2023-10-25 23:08 | disposition home or self-care (01) ==
LOC: MW.ED 18:37
DX: L03.113 Cellulitis of right upper limb (principal); Z79.899 Other long term (current) drug therapy
CPT/HCPCS: 36415; 73080; 80053; 83605; 85025; 87040; 96360; 99283; A9270; J7030

== ENCOUNTER 2024-10-20 15:25 | Emergency (ER) | payer BC ==
[2024-10-20] MEDS: Ketorolac 10 MG Tab PO STA (18:27)
[2024-10-20 19:20] VITALS: BP 136/78; PULSE 72
== END 2024-10-20 19:19 | disposition home or self-care (01) ==
LOC: MW.ED 15:25
DX: M79.672 Pain in left foot (principal); Z86.718 Personal history of other venous thrombosis and embolism; Z75.8 Other problems related to medical facilities and other health care; Z79.899 Other long term (current) drug therapy
CPT/HCPCS: 73630; 93971; 99284; A9270; 99283

== ENCOUNTER 2025-03-01 10:37 | Emergency (ER) | payer BC ==
[2025-03-01] MEDS ORDERED: Sodium Chloride 0.9% 10 ML Syringe FLUSH PRN (11:40)
[2025-03-01] MEDS ORDERED: Sodium Chloride 0.9% 2.5 ML Syringe FLUSH PRN (11:40)
[2025-03-01 12:18] LABS: BASOPHILS ABSOLUTE AUTO 0.06 K/uL (0.00-0.20); BASOPHILS PERCENT AUTO 0.7 % (0.0-1.0); EOSINOPHILS ABSOLUTE AUTO 0.08 K/uL (0.00-0.45); EOSINOPHILS PERCENT AUTO 0.9 % (0.0-6.0); IMMATURE GRAN ABSOLUTE AUTO 0.03 K/uL (0.00-0.05); IMMATURE GRAN PERCENT AUTO 0.3 % (0.0-0.4); LYMPHOCYTES ABSOLUTE AUTO 1.46 K/uL (1.00-4.80); LYMPHOCYTES PERCENT AUTO 16.2 % (24.0-44.0); MEAN PLATELET VOLUME 9.6 fL (9.4-12.4); MONOCYTES ABSOLUTE AUTO 0.70 K/uL (0.00-0.80); MONOCYTES PERCENT AUTO 7.8 % (0.0-8.0); NEUTROPHILS ABSOLUTE AUTO 6.67 K/uL (1.80-7.70); NEUTROPHILS PERCENT AUTO 74.1 % (41.0-71.0); NRBC ABSOLUTE 0.00 K/uL (0.00-0.02); NRBC PERCENT 0.0 /100WBC (0.0-0.2); PLATELET COUNT,PLT 256 K/uL (150-400); RED BLOOD CELL COUNT 5.59 M/uL (4.52-5.90); WHITE BLOOD CELL COUNT,WBC 9.00 K/uL (3.9-11.3)
[2025-03-01 12:50] LABS: A/G RATIO 1.2 (0.9-1.6); ALANINE AMINOTRANSFERASE,ALT 80.0 IU/L (14-63); ASPARTATE AMNIOTRANSFERASE,AST 39.0 IU/L (15-37); BILIRUBIN TOTAL 0.5 mg/dL (0.2-1.0); BLOOD UREA NITROGEN,BUN 16.0 mg/dL (7.0-18.0); CARBON DIOXIDE,CO2 25.4 mmol/L (21.0-32.0); CHLORIDE,CL 101.0 mmol/L (98-107); CREATININE 1.3 mg/dL (0.8-1.3); EST CRCL DRUG DOSING (CG) 79.55 mL/min; GLUCOSE RANDOM 110.0 mg/dL (74-106); POTASSIUM,K 4.1 mmol/L (3.5-5.1); PROTEIN TOTAL,TP 7.6 g/dL (6.4-8.2); SODIUM,NA 138.0 mmol/L (136-148)
[2025-03-01 13:00] LABS: ESTIMATED GFR 72.0 mL/min (>60)
[2025-03-01 13:46] LABS: APPEARANCE,URINE CLEAR; GLUCOSE,URINE NEGATIVE (NEGATIVE); OCCULT BLOOD,URINE NEGATIVE (NEGATIVE)
[2025-03-01 13:54] LABS: EPITHELIAL CELLS,URINE RARE (NONE-FEW)
[2025-03-01 15:02] VITALS: BP 149/96; PULSE 83
== END 2025-03-01 15:01 | disposition home or self-care (01) ==
LOC: MW.ED 10:37
DX: K52.9 Noninfective gastroenteritis and colitis, unspecified (principal); Z79.899 Other long term (current) drug therapy
CPT/HCPCS: 36415; 74176; 74176-26; 80053; 81001; 83690; 83735; 85025; 99283; 99284

== ENCOUNTER 2025-07-04 07:51 | Day surgery (SDC) | payer BC ==
[~2025-07-04 07:51] MED LIST: Albuterol 0.083% 2.5 MG/3 ML Neb Soln NEB PRN; Midazolam 1 MG/ML 2 ML SDV ONE; Naloxone 0.4 MG/ML SDV IVPUSH PRN; Ondansetron 4 MG/2 ML SDV IVPUSH PRN; Propofol 200 MG/20 ML SDV ONE; Ropivacaine 0.5% 5 MG/ML 30 ML SDV ONE; dexmedeTOMIDine HCl 200 MCG/2 ML SDV ONE; fentaNYL 100 MCG/2 ML SDV ONE; fentaNYL 50 MCG/ML SDV IVPUSH PRN
[2025-07-04] MEDS ORDERED: ceFAZolin 2 GM in Water For Injection, Sterile 20 ML IVPUSH ONE (08:00)
[2025-07-04] MEDS: Lactated Ringers 1,000 ML IV SCH (08:24)
[2025-07-04] MEDS ORDERED: Bupivacaine 0.5%/EPINEPHrine 1:200,000 30 ML SDV ONE (08:36)
[2025-07-04] MEDS ORDERED: Ondansetron 4 MG/2 ML SDV ONE (09:38)
[2025-07-04] MEDS ORDERED: Dexamethasone 4 MG/ML 5 ML MDV ONE (09:38)
[2025-07-04 12:13] VITALS: BP 125/74; PULSE 77
== END 2025-07-04 11:04 | disposition home or self-care (01) ==
LOC: MW.SDS 07:51
PROVIDERS: ATTEND Orthopaedic Surgery
DX: T84.84XA Pain due to internal orthopedic prosthetic devices, implants and grafts, initial encounter (principal); K21.9 Gastro-esophageal reflux disease without esophagitis; F31.9 Bipolar disorder, unspecified; Z79.899 Other long term (current) drug therapy; Y83.1 Surgical operation with implant of artificial internal device as the cause of abnormal reaction of the patient, or of later complication, without mention of misadventure at the time of the procedure
CPT/HCPCS: 20680; 76000; J0690; J1100; J2003; J2250; J2405; J2704; J3010; J7120; 01480; J0665; J2795